=== PATIENT | female | born 1990 | race African-American/Black ===

== ENCOUNTER 2017-01-09 12:06 | Emergency (ER) | payer OTHER ==
[2017-01-09 12:10] VITALS: BP 118/64; PULSE 59; TEMP 98; BMI 21.6
--- NOTE | 2017-01-09 12:56 | PDOC ---
History of Present Illness - General Chief Complaint: Headache Stated Complaint: HEADACHE Time Seen by Provider: 01/09/17 12:35 History Source: Patient Exam Limitations: No Limitations - History of Present Illness Initial Comments: 01/09/17 12:50 And here with complaints of frontal/sinus headache pain, runny nose and congestion for the past few days. States has made her mildly dizzy, and has had a sore throat worse in the morning. Has tried teas with minimal resolved. Has taken no medication for relief. States supper's from pollen ALLERGIES but does not take antihistamines., No Earache or Cough Timing/Duration: reports: waxing and waning Severity: Yes: mild, moderate Associated Symptoms: reports: fatigue. denies: loss of consciousness Past History - Travel Traveled outside of the country in the last 30 days: No Close contact w/someone who was outside of country & ill: No - Past Medical History Allergies/Adverse Reactions: Allergies Allergy/AdvReac Type Severity Reaction Status Date / Time No Known Allergies Allergy Verified 01/09/17 12:11 Home Medications: Ambulatory Orders Vit #108/Iron/FA [ One Tablet] 1 each PO DAILY 02/15/15 Cetirizine HCl/Pseudoephedrine [Allergy+Congestion Relf-D Tab] 1 each PO DAILY # 30 tab 01/09/17 Asthma: No Cancer: No Cardiac Disorders: No Diabetes: No HTN: No Suicide Attempt (Hx): No Seizures: No Thyroid Disease: No - Immunization History Td Vaccination: Yes TDAP Vaccination: No Immunization Up to Date: Yes - Psycho/Social/Smoking Cessation Hx Anxiety: No Suicidal Ideation: No Smoking Status: No Smoking History: Never smoked Years of Tobacco Use: 0 Number of Cigarettes Smoked Daily: 0 Cigars Per Day: 0 Information on smoking cessation initiated: No Hx Alcohol Use: No Drug/Substance Use Hx: No Substance Use Type: None Hx Substance Use Treatment: No Review of Systems - Review of Systems Able to Perform ROS?: Yes Is the patient limited Iranian proficient: Yes Constitutional: Yes: Symptoms Reported, See HPI, Malaise. No: Chills, Fever HEENTM: Yes: Symptoms Reported, Nose Congestion Respiratory: Yes: Symptoms reported, See HPI, Cough (non productive ) Integumentary: Yes: Symptoms Reported Neurological: Yes: Symptoms reported All Other Systems: Reviewed and Negative *Physical Exam - Vital Signs Last Vital Signs Temp Pulse Resp BP Pulse Ox 98 F 59 L 18 118/64 100 01/09/17 12:08 01/09/17 12:08 01/09/17 12:08 01/09/17 12:08 01/09/17 12:08 - Physical Exam General Appearance: Yes: Nourished, Appropriately Dressed, Apparent Distress HEENT: positive: MAMADOU (glassy), Pharynx Normal, Nasal Congestion, Rhinorrhea, Sinus Tenderness (with some fullness to frontal sinuses, mild tenderness to ethmoid and maxillary). negative: TMs Normal (congested ), Pharyngeal Erythema (on appearance with postnasal drainage noted in posterior pharynx) Neck: positive: Supple. negative: Tender, Lymphadenopathy (R), Lymphadenopathy (L) Respiratory/Chest: positive: Chest Tender, Lungs Clear Gastrointestinal/Abdominal: positive: Soft. 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, Fully Oriented, Alert, Normal Mood/ Affect, Normal Response, Motor Strength 5/5 Progress Note - Progress Note Progress Note: Urgent rhinitis, will provide zyrerotec with decongestant and conservative measures *DC/Admit/Observation/Transfer Diagnosis at time of Disposition: Allergic rhinitis Qualifiers: Chronicity: acute Allergic rhinitis trigger: unspecified Allergic rhinitis seasonality: unspecified seasonality Qualified Code(s): J30.9 - Allergic rhinitis, unspecified - Discharge Dispostion Disposition: HOME Condition at time of disposition: Stable Admit: No - Patient Instructions Printed Discharge Instructions: DI for Allergic Rhinitis Additional Instructions: Rest, drink lots of fluids: Teas, water, soups Saltwater gargles. Consider humidifier in room at night Steamy showers/seem to face break up mucus Avoid contact with allergens, exposure to pollens, close windows on a windy day Lots of handwashing and good hygiene Continue [id number]-ljk-[id number] medications for symptomatic relief- may use allergic eyedrops for itching I Continue antihistamines daily until pollen season is over; Zyrtec, Claritin, Amada during the daytime and Benadryl at nighttime as will make sleepy Tylenol or Motrin for fever and pain Followup with private physician in one to 2 days as needed Consider following up with an lead developer/diesel service apprentice for skin testing and possible allergy shots Return to emergency department for worsened symptoms, fevers, dehydration - Post Discharge Activity Work/School Note: Back to Work
== END 2017-01-09 13:02 | disposition home or self-care (01) ==
LOC: JERFT 12:06
DX: J30.89 Other allergic rhinitis (principal)
CPT/HCPCS: 99281-25

== ENCOUNTER 2019-05-14 20:28 | Emergency (ER) | payer OTHER ==
[2019-05-14 20:35] VITALS: BMI 23.0
[2019-05-14] MEDS ORDERED: SODIUM CHLORIDE 1,000 ML IV STA (20:39)
[2019-05-14] MEDS ORDERED: ACETAMINOPHEN INJECTION 100 ML IVPB ONE (20:39)
[2019-05-14] MEDS ORDERED: ACETAMINOPHEN 1000 MG/100 ML VIAL (NON FORMULARY) IVPB ONE (20:39)
--- NOTE | 2019-05-14 20:52 | PDOC ---
History of Present Illness - General Chief Complaint: Altered Mental Status Stated Complaint: UNRESPONSIVE Time Seen by Provider: 05/14/19 20:32 History Source: Patient Exam Limitations: No Limitations - History of Present Illness Initial Comments: 05/14/19 20:44 Patient is a 28F with no significant medical history who was brought into the emergency department after being found unresponsive by her mother. Patient is shaking voluntarily and ignoring most questions, but is able to say that her head hurts. Mom denies any trauma, substance use and seizure history. Patient has questionable history of anxiety. Brought in by father on his back. Mom reports conflict with boyfriend and increased stress levels at home. Past History - Past Medical History Allergies/Adverse Reactions: Allergies Allergy/AdvReac Type Severity Reaction Status Date / Time No Known Allergies Allergy Verified 05/14/19 20:32 Home Medications: Ambulatory Orders Mv-Mn/Iron/FA/Herbal/Digestive [ One Tablet] 1 each PO DAILY 02/15/15 Cetirizine HCl/Pseudoephedrine [Allergy+Congestion Relf-D Tab] 1 each PO DAILY # 30 tab 01/09/17 Asthma: No Cancer: No Cardiac Disorders: No Diabetes: No HTN: No Seizures: No Thyroid Disease: No - Immunization History Td Vaccination: Yes TDAP Vaccination: No Immunization Up to Date: Yes - Psycho Social/Smoking Cessation Hx Smoking Status: No Smoking History: Never smoked Years of Tobacco Use: 0 Have you smoked in the past 12 months: No Number of Cigarettes Smoked Daily: 0 Cigars Per Day: 0 Information on smoking cessation initiated: No Hx Alcohol Use: No Drug/Substance Use Hx: No (unknown) Substance Use Type: None Hx Substance Use Treatment: No Review of Systems - Review of Systems Able to Perform ROS?: No (2/2 clinical condition) *Physical Exam - Vital Signs Last Vital Signs Temp Pulse Resp BP Pulse Ox 75 22 H 139/69 100 05/14/19 20:33 05/14/19 20:33 05/14/19 20:33 05/14/19 20:33 - Physical Exam Comments: 05/14/19 20:53 GENERAL: Awake, alert, shaking jaw and eyelids HEAD: No signs of trauma, normocephalic, atraumatic EYES: PERRLA, EOMI, sclera anicteric, conjunctiva clear ENT: Auricles normal inspection, hearing grossly normal, nares patent, oropharynx clear without exudates. Moist mucosa NECK: Normal ROM, supple, no lymphadenopathy, JVD, or masses LUNGS: No distress, speaks full sentences, clear to auscultation bilaterally HEART: Regular rate and rhythm, normal S1 and S2, no murmurs, rubs or gallops, peripheral pulses normal and equal bilaterally. ABDOMEN: Soft, nontender, normoactive bowel sounds. No guarding, no rebound. No masses EXTREMITIES: Normal inspection, Normal range of motion, no edema. No clubbing or cyanosis. NEUROLOGICAL: Cranial nerves II through XII grossly intact. Voluntary shaking of eyelids and jaw. Protecting face, moving head purposely, held self up during removal of clothes SKIN: Warm, Dry, normal turgor, no rashes or lesions noted. ED Treatment Course - LABORATORY CBC & Chemistry Diagram: 05/14/19 20:41 05/14/19 20:43 - RADIOLOGY Radiology Studies Ordered: Category Date Time Status HEAD CT WITHOUT CONTRAST [CT] Stat CT Scan 05/14/19 20:37 Ordered CXRPORT [CHEST X-RAY PORTABLE*] [RAD] Stat Radiology 05/14/19 20:38 Ordered Medical Decision Making - Medical Decision Making 05/14/19 20:54 Patient is 28F with no significant medical history here today with altered mental status. Vitals normal and stable. No signs of seizure. DDx includes but is not limited to: intox, pseudoseizure, tension headache, anxiety. Will treat pain, check cbc, cmp, preg, utox, CT head. 05/14/19 21:42 CBC normal. CMP normal. Tylenol 17.5, will review with patient time of tylenol ingestion. Patient currently asymptomatic and feeling better, likely took tylenol for headache. Salicylates negative. Preg negative. CT/CXR pending. 05/14/19 21:52 CXR shows no acute process. 05/15/19 00:10 CT normal. Tylenol level drawn after tylenol given due to not drawing correct tube. Will discharge home. Discharge - Discharge Information Problems reviewed: Yes Clinical Impression/Diagnosis: Panic attack Condition: Good Disposition: HOME - Admission No - Follow up/Referral Referrals: Sriram Loya MD [Staff Physician] - - Patient Discharge Instructions Patient Printed Discharge Instructions: DI for Anxiety -- Adult Additional Instructions: Please follow up with your primary care physician this week. You've also been given a referall for psychiatry below. Please return if you have any new, worsening or concerning symptoms, especially fever, increasing pain and shortness of breath. - Post Discharge Activity
[2019-05-14 20:58] LABS: BASO % 1.3 % (0-2.0); EOS % 4.7 % (0-4.5); HEMATOCRIT 42.6 % (32.4-45.2); HEMOGLOBIN 13.9 GM/dL (10.7-15.3); LYMPH % 43.6 % (8-40); MCHC 32.7 g/dl (32.0-36.0); MEAN CELL VOLUME 88.5 fl (80-96); MONO % 7.8 % (3.8-10.2); NEUT % 42.6 % (42.8-82.8); RBC 4.81 M/mm3 (3.60-5.2); WHITE BLOOD COUNT 5.4 K/mm3 (4.0-10.0)
[2019-05-14 21:26] LABS: ALBUMIN 4.2 g/dl (3.4-5.0); ALK PHOS 61 U/L (45-117); ANION GAP 9 MMOL/L (8-16); BILIRUBIN,TOTAL 0.7 mg/dL (0.2-1); BLOOD UREA NITROGEN 8.3 mg/dL (7-18); CALCIUM 9.4 mg/dL (8.5-10.1); CHLORIDE 106 mmol/L (98-107); CO2 25 mmol/L (21-32); CREATININE 0.9 mg/dL (0.55-1.3); GLUCOSE,RANDOM 97 mg/dL (74-106); SGOT/AST 14 U/L (15-37); SGPT/ALT 15 U/L (13-61); SODIUM 140 mmol/L (136-145); TOT PROT 7.5 g/dl (6.4-8.2)
[2019-05-14 21:29] LABS: PLATELET COUNT 204 K/MM3 (134-434)
[2019-05-14 21:56] LABS: PH,URINE 8.5 (5.0-8.0); URINE APPEARANCE CLOUDY; URINE BILIRUBIN NEGATIVE (NEGATIVE); URINE COLOR YELLOW; URINE GLUCOSE (UA) NEGATIVE (NEGATIVE); URINE KETONE 2+ (NEGATIVE); URINE LEUK ESTERASE NEGATIVE (NEGATIVE); URINE NITRITE NEGATIVE (NEGATIVE); URINE PROTEIN TRACE (NEGATIVE)
[2019-05-14 22:06] LABS: COCAINE, UR NEGATIVE ng/ml (CUTOFF=300); METHADONE, UR NEGATIVE ng/ml (CUTOFF=300); OPIATES, URI NEGATIVE ng/ml (CUTOFF=300); PHENCYCLIDINE,URINE NEGATIVE ng/ml (CUTOFF=25); URINE AMPHETAMINES NEGATIVE ng/ml (CUTOFF=500); URINE BARBITURATES NEGATIVE ng/ml (CUTOFF=200); URINE BENZODIAZEPINES NEGATIVE ng/ml (CUTOFF=200)
--- NOTE | 2019-05-14 22:06 | PDOC ---
Documentation entered by Ananya Ny SCRIBE, acting as scribe for Dottie Cannon DO. Dottie Cannon DO: This documentation has been prepared by the Anant sol Adrianna, SCRIBE, under my direction and personally reviewed by me in its entirety. I confirm that the documentation accurately reflects all work, treatment, procedures, and medical decision making performed by me. Attending Attestation - Resident Resident Name: Wiley Lau - ED Attending Attestation I have performed the following: I have examined & evaluated the patient, The case was reviewed & discussed with the resident, I agree w/resident's findings & plan - HPI HPI: The patient is a 28 year old female, with no significant PMH, presenting with unresponsiveness. Mom notes she found her daughter on the floor shaking and unable to answer questions. She complained of head pain. Mom reports increased stress at home secondary to issues with boyfriend. Allergies: NKA, NKDA Surgical History: None reported Social History: No toxic habits - Physicial Exam PE: Agree with resident exam - Medical Decision Making 05/14/19 22:05 28-year-old female with altered mental status and what appeared to be seizure- like activity after complaining of a headache at home Patient rapidly returned to normal mental status admitting that she is been under stress Work-up has been unremarkable No acute psychiatric need for evaluation Plan for DC home with outpatient follow-up
[2019-05-15 00:27] VITALS: BP 119/68; PULSE 78
== END 2019-05-15 00:27 | disposition home or self-care (01) ==
LOC: JER 20:28
PROC: 3E033NZ Introduction of Analgesics, Hypnotics, Sedatives into Peripheral Vein, Percutaneous Approach (ICD-10-PCS; principal; 2019-05-14)
PROC: 3E0337Z Introduction of Electrolytic and Water Balance Substance into Peripheral Vein, Percutaneous Approach (ICD-10-PCS; 2019-05-14)
DX: F41.0 Panic disorder [episodic paroxysmal anxiety] (principal)
CPT/HCPCS: 36415; 70450-TC; 71045-TC-FY; 80053; 80307; 81003; 84703; 85025; 99285-25; J0131; J7030

== ENCOUNTER 2019-08-13 23:08 | Emergency (ER) | payer OTHER ==
[2019-08-13 23:32] VITALS: BP 111/53; PULSE 73; TEMP 98.2; BMI 51.5
--- NOTE | 2019-08-14 01:14 | PDOC ---
History of Present Illness - General Chief Complaint: Pain Stated Complaint: ABD PAIN Time Seen by Provider: 08/14/19 01:07 - History of Present Illness Initial Comments: 08/14/19 01:31 29 year old woman A0 currently approx 8 weeks with LNMP in mid- June who presents with seconds long episode of LUQ stabbing pain that resolved. The patient denies any fevers, chest pain, shortness of breath, Past History - Past Medical History Allergies/Adverse Reactions: Allergies Allergy/AdvReac Type Severity Reaction Status Date / Time No Known Allergies Allergy Verified 08/13/19 23:25 Home Medications: Ambulatory Orders Mv-Mn/Iron/FA/Herbal/Digestive [ One Tablet] 1 each PO DAILY 02/15/15 Cetirizine HCl/Pseudoephedrine [Allergy+Congestion Relf-D Tab] 1 each PO DAILY # 30 tab 01/09/17 Asthma: No Cancer: No Cardiac Disorders: No COPD: No Diabetes: No HTN: No Seizures: No Thyroid Disease: No - Immunization History Td Vaccination: Yes TDAP Vaccination: No Immunization Up to Date: Yes - Psycho Social/Smoking Cessation Hx Smoking Status: No Smoking History: Never smoked Years of Tobacco Use: 0 Have you smoked in the past 12 months: No Number of Cigarettes Smoked Daily: 0 Cigars Per Day: 0 Information on smoking cessation initiated: No Hx Alcohol Use: No Drug/Substance Use Hx: No Substance Use Type: None Hx Substance Use Treatment: No *Physical Exam - Vital Signs Last Vital Signs Temp Pulse Resp BP Pulse Ox 98.2 F 73 18 111/53 L 100 08/13/19 23:10 08/13/19 23:10 08/13/19 23:10 08/13/19 23:10 08/13/19 23:10 Discharge - Discharge Information Problems reviewed: Yes Clinical Impression/Diagnosis: Abdominal pain Condition: Stable Disposition: HOME - Admission No - Follow up/Referral Referrals: Alfred Clemons MD [Primary Care Provider] - - Patient Discharge Instructions Patient Printed Discharge Instructions: DI for Abdominal Pain -- Early Additional Instructions: You were seen in the ER for complaints of abdominal pain You had an ultrasound that showed age of 5 weeks 6 days with no measurable heart rate You have an upcoming appointment on 08/21/19 with your OBGYN and you should keep this appointment. Return to the ER if you develop vaginal bleeding, worsening abdominal pain, nausea, vomiting or any other concerning symptoms - Post Discharge Activity
--- NOTE | 2019-08-14 01:17 | PDOC ---
Attending Attestation - Resident Resident Name: Romi Mc - ED Attending Attestation I have performed the following: I have examined & evaluated the patient, The case was reviewed & discussed with the resident, I agree w/resident's findings & plan - HPI HPI: 08/14/19 02:16 see resident hpi - Physicial Exam PE: 08/14/19 02:16 agree with resident exam - Medical Decision Making 08/14/19 02:16 29-year-old female with an episode of abdominal pain, now resolved By LMP patient is approximately 8 weeks gestational age Ultrasound today shows an approximately 5-week 6-day pole with no heart rate detected Patient has no vaginal bleeding and is asymptomatic at this time Abdomen is completely nontender We will send a beta quantitative level for comparison when she goes for her follow-up appointment in approximately 1 week for ultrasound and OB establishment Patient understands instructions, she was advised that may not be viable and she may develop increased pain or bleeding for which she was told to return.
[2019-08-14 03:13] LABS: ALBUMIN 3.8 g/dl (3.4-5.0); BILIRUBIN,TOTAL 0.3 mg/dL (0.2-1); BLOOD UREA NITROGEN 7.2 mg/dL (7-18); CALCIUM 8.7 mg/dL (8.5-10.1); CREATININE 0.7 mg/dL (0.55-1.3); POTASSIUM 3.5 mmol/L (3.5-5.1); TOT PROT 6.8 g/dl (6.4-8.2)
== END 2019-08-14 02:39 | disposition home or self-care (01) ==
LOC: JER 23:08
DX: O26.891 Other specified pregnancy related conditions, first trimester (principal); R10.12 Left upper quadrant pain; Z3A.08 8 weeks gestation of pregnancy
CPT/HCPCS: 36415; 76817-TC; 80053; 83690; 84702; 99282-25

== ENCOUNTER 2019-08-18 09:04 | Emergency (ER) | payer OTHER ==
[2019-08-18 09:15] VITALS: BMI 22.4
[2019-08-18] MEDS ORDERED: FAMOTIDINE 20 MG/50 ML IVPB 20 MG/50 ML MG IVPB ONE ×2 (10:20→10:32)
[2019-08-18] MEDS ORDERED: ACETAMINOPHEN 1000 MG/100 ML VIAL (NON FORMULARY) IVPB ONE (10:20)
[2019-08-18] MEDS ORDERED: SODIUM CHLORIDE 1,000 ML IV STA (10:20)
--- NOTE | 2019-08-18 10:20 | PDOC ---
History of Present Illness - General Chief Complaint: Pain, Acute Stated Complaint: 5 W PREG/VOMITING Time Seen by Provider: 08/18/19 10:03 History Source: Patient Exam Limitations: No Limitations - History of Present Illness Initial Comments: Edwige Charlton is a 29 yo F, LMP mid June, who presents to the [facility] er with nausea and vomiting which is associated with epigastric discomfort when she vomits. She states whatever she eats she throws up. She is having a difficult time keeping anything down. Her vomitus does not appear to be bloody or have anything green in it. She states she feels dehydrated and has not been able to eat for the past day. She was recently seen in this ER 3 days ago where she had an US performed which showed a normal IUP. - Patient states she has been taking her pre-divya vitamins at home. She denies fevers, chills, chest pain, SOB, difficulty breathing, dysuria, frequency, or hematuria PCP: Dr. Clemons OB: 2 [facility] PSH: None reported Allergies: NKA, NKDA Social Hx: Denies smoking, drinking, or other substance abuse. Takes pre- vitamins. Past History - Past Medical History Allergies/Adverse Reactions: Allergies Allergy/AdvReac Type Severity Reaction Status Date / Time No Known Allergies Allergy Verified 08/18/19 09:15 Home Medications: Ambulatory Orders Mv-Mn/Iron/FA/Herbal/Digestive [ One Tablet] 1 each PO DAILY 02/15/15 Cephalexin Monohydrate [Keflex -] 500 mg PO Q6H 5 Days #20 capsule 08/18/19 Asthma: No Cancer: No Cardiac Disorders: No COPD: No Diabetes: No HTN: No Seizures: No Thyroid Disease: No - Reproductive History Therapeutic (s) & number: No - Immunization History Td Vaccination: Yes TDAP Vaccination: No Immunization Up to Date: Yes - Psycho Social/Smoking Cessation Hx Smoking Status: No Smoking History: Never smoked Years of Tobacco Use: 0 Have you smoked in the past 12 months: No Number of Cigarettes Smoked Daily: 0 Cigars Per Day: 0 Hx Alcohol Use: No Drug/Substance Use Hx: No Substance Use Type: None Hx Substance Use Treatment: No Abd/GI Specific PMHX - Complaint Specific PMHX GERD: No Review of Systems - Review of Systems Able to Perform ROS?: Yes Comments:: CONSTITUTIONAL: Present: Fatigue Absent: fever, no chills EYES: Absent: visual changes ENT: Absent: ear pain, no sore throat CARDIOVASCULAR: Absent: chest pain, no palpitations RESPIRATORY: Absent: cough, no SOB GI: Present: Abdominal pain, nausea, vomiting Absent: no constipation, no diarrhea GENITOURINARY: Absent: dysuria, no frequency, no hematuria MUSKULOSKELETAL: Absent: back pain, no arthralgia, no myalgia SKIN: Absent: rash NEURO: Absent: headache *Physical Exam - Vital Signs Last Vital Signs Temp Pulse Resp BP Pulse Ox 98.1 F 63 16 139/85 100 08/18/19 09:13 08/18/19 09:13 08/18/19 09:13 08/18/19 09:13 08/18/19 09:13 - Physical Exam GENERAL: Well-appearing, well-nourished. Mild distress. HEENT: Normocephalic, atraumatic. PERRL, EOM intact. CARDIOVASCULAR: Normal S1, S2. Regular rate and rhythm. PULMONARY: No evidence of respiratory distress. Lungs clear to auscultation bilaterally. No wheezing, rales or rhonchi. ABDOMEN: Mild epigastric TTP. Soft, non-distended. EXTREMITIES: Normal ROM in all four extremities. No gross deformities. SKIN: Warm, dry. No rash NEUROLOGICAL: No focal neurological deficits. ED Treatment Course - LABORATORY CBC & Chemistry Diagram: 08/18/19 10:52 08/18/19 10:52 - RADIOLOGY Radiograph Interpretation: TVUS: EXAM#: TYPE/EXAM: RESULT: [id number] US/TRANSVAGINAL US PREG HISTORY PROVIDED: evaluation. Real time examination of the pelvis utilizing both the transabdominal and transvaginal probes demonstrates the following: There is a single, live intrauterine with crown-rump measurements corresponding to a gestational age of 6 weeks 1 day. A heart rate of 108 BPM was calculated. The ovaries are normal in size and texture with arterial flow documented to both ovaries. There is a small right ovarian cyst measuring 2.1 x 1.8 x 1.5 cm. There is no evidence of adnexal masses or free pelvic fluid collections. IMPRESSION: Single, live intrauterine of 6 weeks 1 day gestational age. Medical Decision Making - Medical Decision Making Edwige Charlton is a 29 yo F, LMP mid June, who presents to the [facility] er with nausea and vomiting which is associated with epigastric discomfort when she vomits. She states whatever she eats she throws up. She is having a difficult time keeping anything down. Her vomitus does not appear to be bloody or have anything green in it. She states she feels dehydrated and has not been able to eat for the past day. She was recently seen in this ER 3 days ago where she had an US performed which showed a normal IUP. - Patient states she has been taking her pre- vitamins at home. Vital Signs Temp Pulse Resp BP Pulse Ox 98.1 F 63 16 139/85 100 08/18/19 09:13 08/18/19 09:13 08/18/19 09:13 08/18/19 09:13 08/18/19 09:13 DDx IBNLT: Hyperemesis gravidarum, dehydration, electrolyte/metabolic disturbance, asymptomatic bacteriuria Plan: Labs, Urine, IV hydration, analgesia, anti-emetics, supportive care, re- assess Labs: Unremarkable Urine: 2+ ketonuria, asymptomatic bacteriurea - Keflex sent to pharmacy Re-assessment: Patient feels better after supportive care and is requesting to be fed. She is eating a tukey sandwich and drinking apple juice in the ER TVUS: A heart rate of 108 BPM was calculated. Single, live intrauterine of 6 weeks 1 day gestational age. Disposition: Home with OB fu Discharge - Discharge Information Problems reviewed: Yes Clinical Impression/Diagnosis: Asymptomatic bacteriuria during , Hyperemesis gravidarum Condition: Improved Disposition: HOME - Admission No - Additional Discharge Information Prescriptions: Cephalexin Monohydrate [Keflex -] 500 mg PO Q6H 5 Days #20 capsule - Follow up/Referral Referrals: Alfred Clemons MD [Primary Care Provider] - - Patient Discharge Instructions Patient Printed Discharge Instructions: Urinary Tract Infection Additional Instructions: You came into the ER with nausea and vomiting. You were very dehydrated. We gave you IV fluids and other medications which made you feel much better and enabled you to eat and drink in the ER. We looked at your urine and found that you have bacteria in it. We are sending antibiotics to your local pharmacy for you to take for this. Please make sure to schedule a follow up with your OB doctor in the next 3 to5 days to make sure you are feeling well, being taken care of and getting better. Come back to the ER immediately if your pain worsens or you have any other new or worsening concerns. thank you for coming to the [place] ER. We hope you feel better soon! Print Language: KHMER - Post Discharge Activity
[2019-08-18] MEDS ORDERED: ONDANSETRON 4 MG/2 ML VIAL IVPUSH ONE (10:21)
[2019-08-18] MEDS ORDERED: ONDANSETRON 4 MG/2 ML VIAL ONE (10:32)
[2019-08-18] MEDS ORDERED: ACETAMINOPHEN INJECTION 100 ML IVPB ONE (10:32)
[2019-08-18 11:15] LABS: BASO % 0.8 % (0-2.0); EOS % 0.5 % (0-4.5); HEMATOCRIT 42.8 % (32.4-45.2); HEMOGLOBIN 14.5 GM/dL (10.7-15.3); LYMPH % 38.3 % (8-40); MCH 29.3 pg (25.7-33.7); MCHC 33.8 g/dl (32.0-36.0); MEAN CELL VOLUME 86.8 fl (80-96); MEAN PLT VOLUME 10.1 fl (7.5-11.1); MONO % 6.6 % (3.8-10.2); NEUT % 53.8 % (42.8-82.8); PLATELET COUNT 191 K/MM3 (134-434); RBC 4.93 M/mm3 (3.60-5.2); WHITE BLOOD COUNT 3.7 K/mm3 (4.0-10.0)
[2019-08-18 11:21] LABS: HYALINE CASTS 37 /lpf (0-8); PH,URINE 7.5 (5.0-8.0); URINE APPEARANCE CLOUDY; URINE BACTERIA 909.2 /hpf (NEGATIVE); URINE BILIRUBIN NEGATIVE (NEGATIVE); URINE COLOR DK YELLOW; URINE GLUCOSE (UA) NEGATIVE (NEGATIVE); URINE KETONE 2+ (NEGATIVE); URINE LEUK ESTERASE NEGATIVE (NEGATIVE); URINE NITRITE NEGATIVE (NEGATIVE); URINE PROTEIN 2+ (NEGATIVE); URINE RBC 1 /hpf (0-4); URINE WBC 6 /hpf (0-5)
[2019-08-18 11:40] LABS: ALBUMIN 4.6 g/dl (3.4-5.0); BILIRUBIN,TOTAL 0.2 mg/dL (0.2-1); CALCIUM 9.2 mg/dL (8.5-10.1); CREATININE 0.8 mg/dL (0.55-1.3); POTASSIUM 3.7 mmol/L (3.5-5.1); TOT PROT 8.4 g/dl (6.4-8.2)
--- NOTE | 2019-08-18 11:53 | PDOC ---
Attending Attestation - Resident Resident Name: Shane Del Castillo - ED Attending Attestation I have performed the following: I have examined & evaluated the patient, The case was reviewed & discussed with the resident, I agree w/resident's findings & plan - HPI HPI: 08/18/19 11:50 Healthy 29-year-old female suspected LMP in June status post visit on 08/14 with likely early IUP and elevated hCG presents now with epigastric discomfort and persistent nonbloody nonbilious nausea/vomiting of the last 3 days, no persistent abdominal pain, no diarrhea. Normal appetite but not tolerating some meals, presents for evaluation. Denies any cramping or bleeding or lightheadedness or syncope. No history of recurring GI illnesses, may have had endoscopy in the past but does not recall diagnosis of gastritis or PUD, had similar nausea/vomiting in early during her first . No other travel/antibiotics, works in a public place. - Physicial Exam PE: 08/18/19 11:51 Vitals are within normal limits Well-appearing lying comfortably in stretcher, no jaundice or pallor, moist mucosa Heart is regular, lungs are clear Abdomen is soft/nondistended. Epigastric discomfort to palpation without guarding or rebound, no right upper or right lower quadrant tenderness. No CVA tenderness. - Medical Decision Making 08/18/19 11:52 29-year-old female first trimester presents with intractable vomiting , otherwise benign abdominal exam and normal vitals. Presentation seems most consistent with viral gastritis/dyspepsia versus nausea/vomiting of , less likely pancreatic or biliary pathology. No signs or symptoms of BOX ORDER PERSON emergency. Labs, urinalysis IV fluids, antacid, antiemetic Reassess
[2019-08-18 12:03] LABS: MAGNESIUM 2.2 mg/dL (1.8-2.4)
[2019-08-18] MEDS ORDERED: SODIUM CHLORIDE 0.9% 500 ML INFUS.BAG IV ONE (12:10)
[2019-08-18 16:07] VITALS: BP 106/66; PULSE 61; TEMP 97.7
== END 2019-08-18 14:58 | disposition home or self-care (01) ==
LOC: JER 09:04
PROC: 3E0337Z Introduction of Electrolytic and Water Balance Substance into Peripheral Vein, Percutaneous Approach (ICD-10-PCS; principal; 2019-08-18)
PROC: 3E033GC Introduction of Other Therapeutic Substance into Peripheral Vein, Percutaneous Approach (ICD-10-PCS; 2019-08-18)
PROC: 3E033NZ Introduction of Analgesics, Hypnotics, Sedatives into Peripheral Vein, Percutaneous Approach (ICD-10-PCS; 2019-08-18)
PROC: 3E033GC Introduction of Other Therapeutic Substance into Peripheral Vein, Percutaneous Approach (ICD-10-PCS; 2019-08-18)
DX: O26.891 Other specified pregnancy related conditions, first trimester (principal); O21.0 Mild hyperemesis gravidarum; O23.591 Infection of other part of genital tract in pregnancy, first trimester; R82.71 Bacteriuria; Z3A.01 Less than 8 weeks gestation of pregnancy
CPT/HCPCS: 36415; 76817-TC; 80053; 81003; 83690; 83735; 84100; 84702; 85025; 87086; 96361; 96365; 96375; 99283-25; J0131; J7030

== ENCOUNTER 2019-08-19 17:57 | Emergency (ER) | payer OTHER ==
[2019-08-19] MEDS ORDERED: ONDANSETRON 4 MG/2 ML VIAL IVPUSH ONE (18:32)
[2019-08-19] MEDS ORDERED: SODIUM CHLORIDE 1,000 ML IV STA (18:32)
--- NOTE | 2019-08-19 18:35 | PDOC ---
Rapid Medical Evaluation Chief Complaint: Pain Time Seen by Provider: 08/19/19 18:29 Medical Evaluation: Allergies Allergy/AdvReac Type Severity Reaction Status Date / Time No Known Allergies Allergy Verified 08/19/19 18:33 08/19/19 18:34 Pt c/o: nv/ abd pain, 6 weeks preg, seen yesterday u/s showed IUP Pt on brief exam: vss, Pt ordered for: labs urine, ivf, zofran Pt to proceed to the ED Discharge Disposition - Diagnosis Hyperemesis gravidarum - Referrals - Patient Instructions - Post Discharge Activity
[2019-08-19 18:36] VITALS: BMI 22.4
--- NOTE | 2019-08-19 21:08 | PDOC ---
History of Present Illness - General Chief Complaint: Pain Stated Complaint: ABD PAIN/VOMITING Time Seen by Provider: 08/19/19 18:29 - History of Present Illness Initial Comments: 08/19/19 21:04 Pt is a 29y/o female 6 weeks who presents with epigastric abdominal pain, vomiting and diarrhea. She reports abdominal pain has been present a week but got significantly worse in the last day. She reports vomiting too many times to count, diarrhea, and chills. She denies vaginal bleeding. She was seen in the ED yesterday and had TVUS which confirmed 6 weeks 1 day HR 108. She was also diagnosed with UTI and took 1 dose of cephalexin. Pt denies marijuana use. Past History - Past Medical History Allergies/Adverse Reactions: Allergies Allergy/AdvReac Type Severity Reaction Status Date / Time No Known Allergies Allergy Verified 08/23/19 07:11 Home Medications: Ambulatory Orders Mv-Mn/Iron/FA/Herbal/Digestive [ One Tablet] 1 each PO DAILY 02/15/15 Cephalexin Monohydrate [Keflex -] 500 mg PO Q6H 5 Days #20 capsule 08/18/19 Acetaminophen [Pain Relief] 650 mg PO Q8H PRN #30 tablet.er 08/19/19 Famotidine [Pepcid] 20 mg PO DAILY #30 tablet 08/19/19 Mag Hydrox/Aluminum Hyd/Simeth [Maalox Advanced Suspension] 30 ml PO TID PRN #1 bottle 08/19/19 Ondansetron [Zofran *Odt*] 4 mg SL TID PRN #21 od.tablet 08/19/19 Doxylamine Succinate [Nighttime Sleep-Aid] 25 mg PO DAILY #30 tablet 08/23/19 Pyridoxine HCl (Vitamin B6) [Vitamin B-6] 25 mg PO DAILY #30 tablet 08/23/19 Terconazole 80 mg VG DAILY 3 Days #3 supp.vag 08/23/19 Asthma: No Cancer: No Cardiac Disorders: No COPD: No Diabetes: No HTN: No Seizures: No Thyroid Disease: No - Reproductive History (#): 2 Para: 1 Therapeutic (s) & number: No - Immunization History Td Vaccination: Yes TDAP Vaccination: No Immunization Up to Date: Yes - Psycho Social/Smoking Cessation Hx Smoking Status: No Smoking History: Never smoked Years of Tobacco Use: 0 Have you smoked in the past 12 months: No Number of Cigarettes Smoked Daily: 0 Cigars Per Day: 0 Information on smoking cessation initiated: No Hx Alcohol Use: No Drug/Substance Use Hx: No Substance Use Type: None Hx Substance Use Treatment: No Review of Systems - Review of Systems Constitutional: Yes: Chills. No: Fever ABD/GI: Yes: Diarrhea, Nausea, Vomiting. No: Abdominal Distended : No: Dysuria Neurological: Yes: Dizziness. No: Headache *Physical Exam - Vital Signs Last Vital Signs Temp Pulse Resp BP Pulse Ox 98.2 F 61 16 113/96 100 08/19/19 18:33 08/19/19 18:33 08/19/19 18:33 08/19/19 18:33 08/19/19 18:33 - Physical Exam General Appearance: Yes: Nourished, Mild Distress HEENT: positive: EOMI, MAMADOU Neck: positive: Trachea midline Respiratory/Chest: positive: Lungs Clear Cardiovascular: positive: Regular Rhythm, Regular Rate Gastrointestinal/Abdominal: positive: Tender (epigastric/ RLQ). negative: Guarding, Rebound Extremity: negative: Pedal Edema Neurologic: positive: data warehouse developer II-XII NML intact, Fully Oriented, Alert, Normal Mood/ Affect ED Treatment Course - LABORATORY CBC & Chemistry Diagram: 08/19/19 21:05 08/19/19 21:05 Medical Decision Making - Medical Decision Making 08/19/19 21:21 Pt is a 29y/o female who presents with abdominal pain, n/v/d. This is her 3rd visit to the ED in the last week for similar symptoms. She was diagnosed with UTI yesterday for which she took 1 dose of cephalexin. Differential: gastroenteritis, hyperemesis gravidarum, less likely cyclical vomiting syndrome , appendicitis. 08/19/19 21:49 Pt reports no relief following zofran. Will give Ofrimev because she felt relief yesterday with it. Discharge - Discharge Information Problems reviewed: Yes Clinical Impression/Diagnosis: Excessive vomiting in Condition: Stable Disposition: HOME - Additional Discharge Information Prescriptions: Acetaminophen [Pain Relief] 650 mg PO Q8H PRN #30 tablet.er PRN Reason: Pain Famotidine [Pepcid] 20 mg PO DAILY #30 tablet Mag Hydrox/Aluminum Hyd/Simeth [Maalox Advanced Suspension] 30 ml PO TID PRN #1 bottle PRN Reason: Abdominal pain Ondansetron [Zofran *Odt*] 4 mg SL TID PRN #21 od.tablet PRN Reason: Nausea And/Or Vomiting - Follow up/Referral Referrals: Alfred Clemons MD [Primary Care Provider] - - Patient Discharge Instructions Patient Printed Discharge Instructions: DI for Hyperemesis Gravidarum Additional Instructions: Discharge Instructions: You were seen in the emergency department for nausea and vomiting duiring . Your blood tests did not show any abnormalities, and your symptoms improved with medications: Home Care and Follow Up: - Vomiting in early is common and is often not a cause for concern. - Eat small, frequent meals throughout the day. Consider keeping crackers or a small snack near your bed to eat as soon as you get up in the morning. - Make sure you are drinking plenty of fluids and staying well hydrated - A combination of vitamin B6 and doxylamine (brand name Unisom) is very effective for nausea/vomiting in . These are available over the counter. You may take 25mg vitamin B6 daily along with of a Unisom tablet ( 12.5mg). Please be aware that Unisom will make you sleepy; be careful driving after taking this medication. - You have been prescribed famotidine (Pepcid) that should be taken every day to prevent irritation from stomach acid. - You have also been prescribed Zofran (ondansetron) and Maalox liquid that can be used every 8 hours as needed for nausea and vomiting. - Follow up with your curriculum development manager within the next 1-2 weeks. - Seek immediate care if you have worsening symptoms, you are unable to keep down any food, you become dehydrated (stop urinating), you have any vaginal bleeding, or you have any other medical emergency. - Post Discharge Activity
[2019-08-19] MEDS ORDERED: ONDANSETRON 4 MG/2 ML VIAL ONE (21:11)
--- NOTE | 2019-08-19 21:12 | PDOC ---
Documentation entered by Armando Light SCRIBE, acting as scribe for Diane Jama MD. Diane Jama MD: This documentation has been prepared by the Nadege sol Nirvannie, SCRIBE, under my direction and personally reviewed by me in its entirety. I confirm that the documentation accurately reflects all work, treatment, procedures, and medical decision making performed by me. Attending Attestation - Resident Resident Name: KarinegentryKim - ED Attending Attestation I have performed the following: I have examined & evaluated the patient, The case was reviewed & discussed with the resident, I agree w/resident's findings & plan, Exceptions are as noted - HPI HPI: 08/19/19 21:10 29-year-old female returns emergency department with nausea vomiting diarrhea. HPI she was seen here on August [address] Osman for nausea and vomiting and at that time had a transvaginal ultrasound that showed a single live IUP of 6 weeks 1 day with heart tones of 108 She was discharged home with a prescription for Keflex for mild UTI Past medical history 2 para 1 - Physicial Exam PE: 08/19/19 21:11 Slender 29-year-old female presents in mild distress with epigastric pain nausea vomiting and diarrhea Head normocephalic atraumatic Neck is supple Lungs are clear to auscultation CVS regular rate and rhythm S1-S2 Abdomen epigastric pain Skin warm and dry Extremities full range of motion Neuro alert and oriented x3 - Medical Decision Making 08/19/19 22:56 Patient denies any vaginal bleeding or pelvic cramping CBC and chemistries are unremarkable Patient did receive antiemetics and IV fluids Impression hyperemesis gravidarum Plan follow-up with your MORTGAGE PROCESSOR
[2019-08-19 21:24] LABS: BASO % 0.2 % (0-2.0); HEMATOCRIT 38.7 % (32.4-45.2); HEMOGLOBIN 13.2 GM/dL (10.7-15.3); LYMPH % 13.5 % (8-40); MCH 29.4 pg (25.7-33.7); MCHC 34.1 g/dl (32.0-36.0); MEAN CELL VOLUME 86.2 fl (80-96); MEAN PLT VOLUME 10.1 fl (7.5-11.1); MONO % 2.7 % (3.8-10.2); NEUT % 83.6 % (42.8-82.8); PLATELET COUNT 162 K/MM3 (134-434); RBC 4.49 M/mm3 (3.60-5.2); RDW 12.9 % (11.6-15.6)
[2019-08-19] MEDS ORDERED: ACETAMINOPHEN 1000 MG/100 ML VIAL (NON FORMULARY) IVPB ONE (21:48)
[2019-08-19 22:08] LABS: ALBUMIN 4.6 g/dl (3.4-5.0); BILIRUBIN,TOTAL 0.4 mg/dL (0.2-1); CALCIUM 9.3 mg/dL (8.5-10.1); CREATININE 0.8 mg/dL (0.55-1.3); POTASSIUM 3.7 mmol/L (3.5-5.1)
[2019-08-19] MEDS ORDERED: ACETAMINOPHEN INJECTION 100 ML IVPB ONE (22:20)
--- NOTE | 2019-08-19 22:20 | PDOC ---
*Physical Exam - Vital Signs Last Vital Signs Temp Pulse Resp BP Pulse Ox 98.2 F 61 16 113/96 100 08/19/19 18:33 08/19/19 18:33 08/19/19 18:33 08/19/19 18:33 08/19/19 18:33 ED Treatment Course - LABORATORY CBC & Chemistry Diagram: 08/19/19 21:05 08/19/19 21:05 - ADDITIONAL ORDERS Additional order review: Laboratory Results 08/19/19 08/19/19 21:05 21:05 Sodium 137 Potassium 3.7 Chloride 105 Carbon Dioxide 23 Anion Gap 9 BUN 6.0 L Creatinine 0.8 Est GFR (CKD-EPI)AfAm 117.10 Est GFR (CKD-EPI)NonAf 101.04 Random Glucose 110 H Calcium 9.3 Magnesium 2.0 Total Bilirubin 0.4 AST 25 ALT 23 Alkaline Phosphatase 50 Total Protein 8.0 Albumin 4.6 08/19/19 21:05 RBC 4.49 MCV 86.2 MCHC 34.1 RDW 12.9 MPV 10.1 Neutrophils % 83.6 H D Lymphocytes % 13.5 D Monocytes % 2.7 L Eosinophils % 0.0 D Basophils % 0.2 - Medications Given in the ED: ED Medications Discontinued Medications Generic Name Dose Route Start Last Admin Trade Name Freq PRN Reason Stop Dose Admin Sodium Chloride 1,000 mls @ 1,000 mls/hr 08/19/19 18:32 08/19/19 21:19 Normal Saline - IV 08/19/19 19:31 1,000 mls/hr ASDIR STA Administration Ondansetron HCl 4 mg 08/19/19 18:32 08/19/19 21:15 Zofran Injection IVPUSH 08/19/19 18:33 4 mg ONCE ONE Administration Medical Decision Making - Medical Decision Making 08/19/19 22:20 Sign out received from Dr Shaver. Edwige Charlton is a 29yo woman currently 6w2d gestation (confirmed by US in the ED yesterday) who re-presents with abdominal pain, vomiting, and diarrhea. ED course so far notable for: - Labs unremarkable - UA, UCx not yet collected. - Zofran, IVF, acetaminophen for symptoms 08/19/19 22:55 - Pt still reporting epigastric pain - Will give maalox/lidocaine for continued symptoms 08/19/19 23:45 - Pt still reports some epigastric discomfort but has not vomited in the past 3- 4 hours in the ED - Requesting food - Discussed home care at length with Ms Charlton. Has an OB appointment scheduled for 08/21/19. Advised that symptoms may not resolve immediate but should improve with time. Recommending frequent meals, B6/doxylamine. Will send with SL zofran to use until OB follow up. Discussed with Dr Jama. Caren Meyers PGY2 Discharge - Discharge Information Problems reviewed: Yes Clinical Impression/Diagnosis: Excessive vomiting in Condition: Stable Disposition: HOME - Admission No - Follow up/Referral Referrals: Alfred Clemons MD [Primary Care Provider] - - Patient Discharge Instructions Patient Printed Discharge Instructions: DI for Hyperemesis Gravidarum Additional Instructions: Discharge Instructions: You were seen in the emergency department for nausea and vomiting duiring . Your blood tests did not show any abnormalities, and your symptoms improved with medications: Home Care and Follow Up: - Vomiting in early is common and is often not a cause for concern. - Eat small, frequent meals throughout the day. Consider keeping crackers or a small snack near your bed to eat as soon as you get up in the morning. - Make sure you are drinking plenty of fluids and staying well hydrated - A combination of vitamin B6 and doxylamine (brand name Unisom) is very effective for nausea/vomiting in . These are available over the counter. You may take 25mg vitamin B6 daily along with of a Unisom tablet ( 12.5mg). Please be aware that Unisom will make you sleepy; be careful driving after taking this medication. - You have been prescribed famotidine (Pepcid) that should be taken every day to prevent irritation from stomach acid. - You have also been prescribed Zofran (ondansetron) and Maalox liquid that can be used every 8 hours as needed for nausea and vomiting. - Follow up with your lay midwife within the next 1-2 weeks. - Seek immediate care if you have worsening symptoms, you are unable to keep down any food, you become dehydrated (stop urinating), you have any vaginal bleeding, or you have any other medical emergency. - Post Discharge Activity
[2019-08-19] MEDS ORDERED: LIDOCAINE VISCOUS 2% ORAL/TOP 20 ML UNIT-DOSE CUP MM ONE ×2 (22:56→23:22)
[2019-08-19] MEDS ORDERED: MAG HYDROX/AL HYDROX/SIMETH 30 ML UNIT-DOSE CUP PO ONE (22:56)
[2019-08-19] MEDS ORDERED: LIDOCAINE VISCOUS 2% ORAL/TOP 20 ML UNIT-DOSE CUP ONE (23:20)
[2019-08-19] MEDS ORDERED: MAG HYDROX/AL HYDROX/SIMETH 30 ML UNIT-DOSE CUP ONE (23:20)
[2019-08-20 02:46] VITALS: BP 144/75; PULSE 60; TEMP 98.4
== END 2019-08-20 00:15 | disposition home or self-care (01) ==
LOC: JER 17:57
PROC: 3E0337Z Introduction of Electrolytic and Water Balance Substance into Peripheral Vein, Percutaneous Approach (ICD-10-PCS; principal; 2019-08-19)
PROC: 3E033NZ Introduction of Analgesics, Hypnotics, Sedatives into Peripheral Vein, Percutaneous Approach (ICD-10-PCS; 2019-08-19)
PROC: 3E033GC Introduction of Other Therapeutic Substance into Peripheral Vein, Percutaneous Approach (ICD-10-PCS; 2019-08-19)
DX: O26.891 Other specified pregnancy related conditions, first trimester (principal); O21.0 Mild hyperemesis gravidarum; Z3A.01 Less than 8 weeks gestation of pregnancy; Z87.440 Personal history of urinary (tract) infections
CPT/HCPCS: 36415; 80053; 83735; 85025; 96361; 96374; 96375; 99283-25; J0131; J7030

== ENCOUNTER 2019-08-23 06:44 | Inpatient (IN) | payer OTHER ==
[2019-08-23 07:14] VITALS: BMI 22.4
--- NOTE | 2019-08-23 08:28 | PDOC ---
History of Present Illness - General Chief Complaint: Vaginal Sxs Stated Complaint: VAGINAL DISCHARGE/6WKS Time Seen by Provider: 08/23/19 07:41 - History of Present Illness Initial Comments: Ms. Charlton is a 29 y/o female @ 6 weeks presenting today with vaginal discharge. Reports that she was taking a bath this morning and drinking an icee when she started feeling nauseated and vomited. Reports that she then noticed some white vaginal discharge down her leg. No bloody discharge. Reports that this white vaginal discharge is new and is what prompted her to come to the ED. Reports that she has been feeling nauseated and vomiting for the past two weeks of this , associated with abdominal cramping. Denies fever/chills. Denies chest pain/shortness of breath. Denies leg swelling. Denies dysuria. OB: 2 mikael batres Past History - Past Medical History Allergies/Adverse Reactions: Allergies Allergy/AdvReac Type Severity Reaction Status Date / Time No Known Allergies Allergy Verified 08/23/19 07:11 Home Medications: Ambulatory Orders Mv-Mn/Iron/FA/Herbal/Digestive [ One Tablet] 1 each PO DAILY 02/15/15 Cephalexin Monohydrate [Keflex -] 500 mg PO Q6H 5 Days #20 capsule 08/18/19 Acetaminophen [Pain Relief] 650 mg PO Q8H PRN #30 tablet.er 08/19/19 Famotidine [Pepcid] 20 mg PO DAILY #30 tablet 08/19/19 Mag Hydrox/Aluminum Hyd/Simeth [Maalox Advanced Suspension] 30 ml PO TID PRN #1 bottle 08/19/19 Ondansetron [Zofran *Odt*] 4 mg SL TID PRN #21 od.tablet 08/19/19 Doxylamine Succinate [Nighttime Sleep-Aid] 25 mg PO DAILY #30 tablet 08/23/19 Pyridoxine HCl (Vitamin B6) [Vitamin B-6] 25 mg PO DAILY #30 tablet 08/23/19 Terconazole 80 mg VG DAILY 3 Days #3 supp.vag 08/23/19 Asthma: No Cancer: No Cardiac Disorders: No COPD: No Diabetes: No HTN: No Seizures: No Thyroid Disease: No - Reproductive History (#): 2 Para: 1 Therapeutic (s) & number: No - Immunization History Td Vaccination: Yes TDAP Vaccination: No Immunization Up to Date: Yes - Psycho Social/Smoking Cessation Hx Smoking Status: No Smoking History: Never smoked Years of Tobacco Use: 0 Have you smoked in the past 12 months: No Number of Cigarettes Smoked Daily: 0 Cigars Per Day: 0 Hx Alcohol Use: No Drug/Substance Use Hx: No Substance Use Type: None Hx Substance Use Treatment: No Abd/GI Specific PMHX - Complaint Specific PMHX GERD: No Review of Systems - Review of Systems Comments:: GENERAL/CONSTITUTIONAL: No fever or chills. No weakness._ HEAD, EYES, EARS, NOSE AND THROAT: No change in vision. No change in hearing. No sore throat._ CARDIOVASCULAR: No chest pain or shortness of breath_ RESPIRATORY: Denies cough, hemoptysis_ GASTROINTESTINAL: Reports nausea, vomiting, abdominal cramps. GENITOURINARY: Reports white vaginal discharge. MUSCULOSKELETAL: No joint or muscle swelling or pain. No neck or back pain._ SKIN: No rash_ NEUROLOGIC: No headache, vertigo, loss of consciousness, or change in strength/ sensation._ ENDOCRINE: No increased thirst. No abnormal weight change_ HEMATOLOGIC/LYMPHATIC: No anemia, easy bleeding, or history of blood clots._ ALLERGIC/IMMUNOLOGIC: No hives or skin allergy._ *Physical Exam - Vital Signs Last Vital Signs Temp Pulse Resp BP Pulse Ox 98.2 F 60 18 122/76 99 08/23/19 07:11 08/23/19 07:11 08/23/19 07:11 08/23/19 07:11 08/23/19 07:11 - Physical Exam GENERAL: Awake, alert, and oriented to person/place/time, in no acute distress_ HEAD: No signs of trauma, normoc ephalic, atraumatic _ EYES: PERRLA, EOMI, sclera anicteric, conjunctiva clear_ ENT: Hearing grossly normal, nares patent, oropharynx clear without exudates. No uvular deviation. Moist mucosa_ NECK: Normal ROM, supple, no lymphadenopathy, JVD, or masses_ LUNGS: No distress, speaks in full sentences, clear to auscultation bilaterally _ HEART: Regular rate and rhythm, normal S1 and S2, no murmurs appreciated, peripheral pulses normal and equal bilaterally._ ABDOMEN: Soft, mild epigastric TTP, normoactive bowel sounds. No guarding, no rebound. No masses_ EXTREMITIES: Normal inspection, Normal range of motion, no edema. No clubbing or cyanosis_ NEUROLOGICAL: Cranial nerves II through XII grossly intact. Normal speech, normal gait, no focal sensorimotor deficits _ SKIN: Warm, Dry, normal turgor, no rashes or lesions noted_ PELVIC: Normal external exam. Os closed. No bleeding. Moderate white discharge in posterior fornix. No CMT. No adnexal tenderness. ED Treatment Course - LABORATORY CBC & Chemistry Diagram: 08/23/19 10:25 08/23/19 10:25 Medical Decision Making - Medical Decision Making 08/23/19 08:32 29F @ 6 weeks presenting with white vaginal discharge. -ua -GC swab -tylenol, zofran 08/23/19 09:26 Pelvic shows milky white discharge in the posterior fornix. Pt was given abx recently for UTI. Plan to d/c home with terconazole 80 mg 3 days, f/u PCP and OB PRN. D/w the patient who verbalized agreement with the plan. All questions answered. Return precautions given. 08/23/19 10:07 Pt not tolerating PO. -cbc, cmp -D5-NS 08/23/19 11:52 Pt still not able to tolerate PO liquids. -reglan 08/23/19 12:10 Labs reviewed. K low at 2.9. Plan to admit. -d5 NS + 40 meq K Laboratory Last Values WBC 8.3 K/mm3 (4.0-10.0) 08/23/19 10:25 RBC 4.71 M/mm3 (3.60-5.2) 08/23/19 10:25 Hgb 13.8 GM/dL (10.7-15.3) 08/23/19 10:25 Hct 40.3 % (32.4-45.2) 08/23/19 10:25 MCV 85.5 fl (80-96) 08/23/19 10:25 MCH 29.2 pg (25.7-33.7) 08/23/19 10:25 MCHC 34.2 g/dl (32.0-36.0) 08/23/19 10:25 RDW 12.9 % (11.6-15.6) 08/23/19 10:25 Plt Count 195 K/MM3 (134-434) D 08/23/19 10:25 MPV 9.9 fl (7.5-11.1) 08/23/19 10:25 Absolute Neuts (auto) 4.6 K/mm3 (1.5-8.0) 08/23/19 10:25 Neutrophils % 55.4 % (42.8-82.8) D 08/23/19 10:25 Lymphocytes % 35.2 % (8-40) D 08/23/19 10:25 Monocytes % 8.9 % (3.8-10.2) D 08/23/19 10:25 Eosinophils % 0.2 % (0-4.5) D 08/23/19 10:25 Basophils % 0.3 % (0-2.0) 08/23/19 10:25 Nucleated RBC % 0 % (0-0) 08/23/19 10:25 Sodium 135 mmol/L (136-145) L 08/23/19 10:25 Potassium 2.9 mmol/L (3.5-5.1) L* 08/23/19 10:25 Chloride 101 mmol/L (98-107) 08/23/19 10:25 Carbon Dioxide 26 mmol/L (21-32) 08/23/19 10:25 Anion Gap 8 MMOL/L (8-16) 08/23/19 10:25 BUN 11.0 mg/dL (7-18) 08/23/19 10:25 Creatinine 0.7 mg/dL (0.55-1.3) 08/23/19 10:25 Est GFR (CKD-EPI)AfAm 137.62 08/23/19 10:25 Est GFR (CKD-EPI)NonAf 118.74 08/23/19 10:25 Random Glucose 94 mg/dL (74-106) 08/23/19 10:25 Calcium 9.4 mg/dL (8.5-10.1) 08/23/19 10:25 Total Bilirubin 0.8 mg/dL (0.2-1) 08/23/19 10:25 AST 19 U/L (15-37) 08/23/19 10:25 ALT 25 U/L (13-61) 08/23/19 10:25 Alkaline Phosphatase 50 U/L (45-117) 08/23/19 10:25 Total Protein 7.8 g/dl (6.4-8.2) 08/23/19 10:25 Albumin 4.6 g/dl (3.4-5.0) 08/23/19 10:25 Lipase 175 U/L (73-393) 08/23/19 10:25 Urine Color Dk yellow 08/23/19 08:50 Urine Appearance Cloudy 08/23/19 08:50 Urine pH >= 9.0 (5.0-8.0) H 08/23/19 08:50 Ur Specific [place] 1.040 (1.010-1.035) H 08/23/19 08:50 Urine Protein 4+ (NEGATIVE) H 08/23/19 08:50 Urine Glucose (UA) Negative (NEGATIVE) 08/23/19 08:50 Urine Ketones 1+ (NEGATIVE) H 08/23/19 08:50 Urine Blood Negative (NEGATIVE) 08/23/19 08:50 Urine Nitrite Positive (NEGATIVE) H 08/23/19 08:50 Urine Bilirubin 1+ (NEGATIVE) H 08/23/19 08:50 Urine Urobilinogen 1.0 mg/dL (0.2-1.0) 08/23/19 08:50 Ur Leukocyte Esterase Negative (NEGATIVE) 08/23/19 08:50 Urine WBC (Auto) 4 /hpf (0-5) 08/23/19 08:50 Urine RBC (Auto) 3 /hpf (0-4) 08/23/19 08:50 Urine Casts (Auto) 29 /lpf (0-8) 08/23/19 08:50 U Epithel Cells (Auto) 9.4 /HPF (0-5/HPF) 08/23/19 08:50 Urine Bacteria (Auto) 19.1 /hpf (NEGATIVE) 08/23/19 08:50 08/23/19 13:00 D/w Dr. Paz who accepts the patient for admission. Discharge - Discharge Information Problems reviewed: Yes Clinical Impression/Diagnosis: Hyperemesis gravidarum, Hypokalemia Condition: Stable - Admission Yes - Additional Discharge Information Prescriptions: Doxylamine Succinate [Nighttime Sleep-Aid] 25 mg PO DAILY #30 tablet Pyridoxine HCl (Vitamin B6) [Vitamin B-6] 25 mg PO DAILY #30 tablet Terconazole 80 mg VG DAILY 3 Days #3 supp.vag - Follow up/Referral Referrals: Alfred Clemons MD [Primary Care Provider] - - Patient Discharge Instructions - Post Discharge Activity
[2019-08-23] MEDS ORDERED: ONDANSETRON *ODT* 4 MG TABLET ONE (08:45)
[2019-08-23] MEDS ORDERED: ACETAMINOPHEN 325 MG TABLET (FP) ONE (08:45)
--- NOTE | 2019-08-23 09:25 | PDOC ---
Attending Attestation - Resident Resident Name: Clovis Nghan - ED Attending Attestation I have performed the following: I have examined & evaluated the patient, The case was reviewed & discussed with the resident, I agree w/resident's findings & plan, Exceptions are as noted - HPI HPI: 08/23/19 09:15 29 F, @ 6 weeks, presents to ED with vaginal discharge. Patient notes she was in the bathroom this morning when she noticed white vaginal discharge running down her leg, without any blood. Patient notes she has had nausea, vomit , and abdominal cramping associated with her . She was evaluated here 5 days ago for this and had normal work up, including US confirming IUP. Pt states that the vaginal discharge is what prompted her to return to the ED. Denies F/C. Denies dysuria. - Physicial Exam PE: 08/23/19 09:19 See resident exam - Medical Decision Making 08/23/19 09:19 29 F with white vaginal discharge. Will evaluate for vaginal candidiasis. Pt was recently on abx for UTI. - Pelvic exam - GC/CT swab - UA/UCx 08/23/19 09:31 Pelvic shows likely candidal vaginitis. Will tx with antifungal suppository Pt is well appearing, with normal vitals. Clinically stable for DC at this time. I discussed the physical exam findings, ancillary test results and final diagnoses with the patient. I answered all of the patient's questions. The patient was satisfied with the care received and felt comfortable with the discharge plan and treatment plan. The patient agrees to follow up with the primary care physician within 24-72 hours.
[2019-08-23] MEDS ORDERED: PYRIDOXINE HCL (B-6) 50 MG TABLET (FP) PO ONE (09:41)
[2019-08-23] MEDS ORDERED: ACETAMINOPHEN 325 MG TABLET (FP) PO ONE (10:04)
[2019-08-23] MEDS ORDERED: ONDANSETRON *ODT* 4 MG TABLET SL ONE (10:04)
[2019-08-23] MEDS ORDERED: DEXTROSE 5%-NORMAL SALINE 1,000 ML IV ONE (10:07)
[2019-08-23 10:21] LABS: EPI CELLS 9.4 /HPF (0-5/HPF); HYALINE CASTS 29 /lpf (0-8); PH,URINE >= 9.0 (5.0-8.0); URINE APPEARANCE CLOUDY; URINE BACTERIA 19.1 /hpf (NEGATIVE); URINE BILIRUBIN 1+ (NEGATIVE); URINE COLOR DK YELLOW; URINE GLUCOSE (UA) NEGATIVE (NEGATIVE); URINE KETONE 1+ (NEGATIVE); URINE LEUK ESTERASE NEGATIVE (NEGATIVE); URINE NITRITE POSITIVE (NEGATIVE); URINE PROTEIN 4+ (NEGATIVE); URINE RBC 3 /hpf (0-4); URINE WBC 4 /hpf (0-5)
[2019-08-23 10:45] LABS: BASO % 0.3 % (0-2.0); EOS % 0.2 % (0-4.5); HEMATOCRIT 40.3 % (32.4-45.2); HEMOGLOBIN 13.8 GM/dL (10.7-15.3); LYMPH % 35.2 % (8-40); MCH 29.2 pg (25.7-33.7); MCHC 34.2 g/dl (32.0-36.0); MEAN CELL VOLUME 85.5 fl (80-96); MEAN PLT VOLUME 9.9 fl (7.5-11.1); MONO % 8.9 % (3.8-10.2); NEUT % 55.4 % (42.8-82.8); PLATELET COUNT 195 K/MM3 (134-434); RBC 4.71 M/mm3 (3.60-5.2); RDW 12.9 % (11.6-15.6); WHITE BLOOD COUNT 8.3 K/mm3 (4.0-10.0)
[2019-08-23 11:44] LABS: ALBUMIN 4.6 g/dl (3.4-5.0); BILIRUBIN,TOTAL 0.8 mg/dL (0.2-1); CALCIUM 9.4 mg/dL (8.5-10.1); CREATININE 0.7 mg/dL (0.55-1.3); TOT PROT 7.8 g/dl (6.4-8.2)
[2019-08-23] MEDS ORDERED: METOCLOPRAMIDE HCL INJECTION 10 MG/2 ML VIAL IVPUSH ONE (11:52)
[2019-08-23 12:06] LABS: POTASSIUM 2.9 mmol/L (3.5-5.1)
[2019-08-23] MEDS ORDERED: METOCLOPRAMIDE HCL INJECTION 10 MG/2 ML VIAL ONE (12:07)
[2019-08-23] MEDS ORDERED: D5-NS + 40 MEQ KCL - 40 MEQ/1,000 ML INFUS.BAG IV SCH (12:15)
[2019-08-23] MEDS ORDERED: POTASSIUM CHLORIDE 20 MEQ PREMIX IVPB 100 ML IVPB ONE (12:53)
[2019-08-23] MEDS ORDERED: KCL 10 MEQ IVPB 20 MEQ/200 ML INFUS.BAG IVPB ONE (13:03)
[2019-08-23] MEDS ORDERED: DEXTROSE 5%-0.45% SALINE 1,000 ML IV SCH ×2 (16:15)
--- NOTE | 2019-08-23 16:16 | HP ---
Admitting History and Physical - Admission History of Present Illness: Pt is a 29 y/o female who is 6 weeks . Pt now presents to the ER with vaginal discharge. Reports that she was taking a bath this morning and drinking an ice when she started feeling nauseated and vomited. Reports that she then noticed some white vaginal discharge down her leg. No bloody discharge. Reports that this white vaginal discharge is new and is what prompted her to come to the ED. Pt states that she has had nausea and vomiting for the past 2 weeks and was found to have low K+ levels. - Past Medical History ...LMP: 07/13/19 ...: Yes - Past Surgical History Past Surgical History: Yes: None - Smoking History Smoking history: Never smoked Have you smoked in the past 12 months: No Aproximately how many cigarettes per day: 0 - Alcohol/Substance Use Hx Alcohol Use: No - Social History History of Recent Travel: No Home Medications - Allergies Allergies/Adverse Reactions: Allergies Allergy/AdvReac Type Severity Reaction Status Date / Time No Known Allergies Allergy Verified 08/23/19 07:11 - Home Medications Home Medications: Ambulatory Orders Mv-Mn/Iron/FA/Herbal/Digestive [ One Tablet] 1 each PO DAILY 02/15/15 Cephalexin Monohydrate [Keflex -] 500 mg PO Q6H 5 Days #20 capsule 08/18/19 Acetaminophen [Pain Relief] 650 mg PO Q8H PRN #30 tablet.er 08/19/19 Famotidine [Pepcid] 20 mg PO DAILY #30 tablet 08/19/19 Mag Hydrox/Aluminum Hyd/Simeth [Maalox Advanced Suspension] 30 ml PO TID PRN #1 bottle 08/19/19 Ondansetron [Zofran *Odt*] 4 mg SL TID PRN #21 od.tablet 08/19/19 Doxylamine Succinate [Nighttime Sleep-Aid] 25 mg PO DAILY #30 tablet 08/23/19 Pyridoxine HCl (Vitamin B6) [Vitamin B-6] 25 mg PO DAILY #30 tablet 08/23/19 Terconazole 80 mg VG DAILY 3 Days #3 supp.vag 08/23/19 Family Medical History Family History: Unremarkable Review of Systems - Review of Systems Constitutional: reports: No Symptoms Eyes: reports: No Symptoms HENT: reports: No Symptoms Neck: reports: No Symptoms Cardiovascular: reports: No Symptoms Respiratory: reports: No Symptoms Gastrointestinal: reports: Nausea, Vomiting Physical Examination Vital Signs: Vital Signs Temperature 97.8 F 08/23/19 14:40 Pulse Rate 68 08/23/19 14:40 Respiratory Rate 18 08/23/19 07:11 Blood Pressure 168/75 08/23/19 14:40 O2 Sat by Pulse Oximetry (%) 99 08/23/19 14:40 Constitutional: Yes: No Distress Eyes: Yes: WNL HENT: Yes: WNL Neck: Yes: WNL, Supple Cardiovascular: Yes: WNL, Regular Rate and Rhythm Respiratory: Yes: WNL, Regular, CTA Bilaterally Gastrointestinal: Yes: WNL, Normal Bowel Sounds, Soft Extremities: Yes: WNL Edema: No Neurological: Yes: WNL, Alert, Oriented ...Motor Strength: WNL Labs: CBC, BMP 08/23/19 10:25 08/23/19 10:25 Problem List - Problems (1) Hypokalemia Assessment/Plan: Replace K+ and monitor levels Code(s): E87.6 - HYPOKALEMIA (2) Excessive vomiting in Assessment/Plan: Start IV hydration Slowly advance diet as tolerated Code(s): O21.9 - VOMITING OF , UNSPECIFIED (3) with 6 completed weeks gestation Assessment/Plan: STAFF RADIOGRAPHER consult Code(s): Z3A.01 - LESS THAN 8 WEEKS GESTATION OF
[2019-08-23] MEDS: MAG HYDROX/AL HYDROX/SIMETH 30 ML UNIT-DOSE CUP PO PRN (21:21)
--- NOTE | 2019-08-23 22:14 | CON.OBG ---
Consult Consult Specialty:: 6 weeks , pregn with hyperemesis, dehydration, electrolyte imbalance - History of Present Illness Chief Complaint: 29 yrs , lmp 07/13/19 , 6 weeks gestation is admitted due to correction of fluid & electrolyte imbalance due to vomiting. pt receieved zofran iv iv reglan , still nausea continued History of Present Illness: pt c/o epigastric pain, followed by pain all over the abdomen she has vomiting on & off for past 2 wks she was seen in ED 1 wk ago 08/18/19, was diagnosed uti rx po keflex given pt did not complete course of antibitics due to nausea & vomiting c/o vaginal discharge, no itching pt states she was seen twice for ciurrent pregn at [address] [place] [address] 08/18/19 sono reported as 6,1 weeks sliup , fhr 108bpm, small 2.1cm rt ov cyst EDC 04/10/20 p - History Source History Provided By: Patient Limitations to Obtaining History: No Limitations - Past Medical History FOIL SPINNER: No: Migraine Cardio/Vascular: No: HTN, Murmur Pulmonary: No: Asthma Gastrointestinal: Yes: Other (epigastric pain, nausea, , declines h/o gastritis or peptic ulcer or gerd ) Hepatobiliary: Yes: Other (no h/o gall stones) Renal/: Yes: UTI (rx po keflex) ...LMP: 07/13/19 (by dates edc 04/20/20 ) ...: Yes ...: 2 ( 04/10/2020 7 weeks by sono ) ...Para: 1 (1 02/20/2015 6lb, nocomplocations ) Heme/Onc: Yes: Other (declines) Infectious Disease: Yes: Other (declines std) Psych: No: Addictions, Anxiety, Bipolar, Depression, Panic, Psychosis, Schizophrenia, Other Endocrine: No: Diabetes Mellitus, Hyperthyroidism, Hypothyroidism - Past Surgical History Past Surgical History: Yes: None - Alcohol/Substance Use Hx Alcohol Use: No History of Substance Use: reports: None - Smoking History Smoking history: Never smoked Have you smoked in the past 12 months: No Aproximately how many cigarettes per day: 0 - Social History History of Recent Travel: No Home Medications - Allergies Allergies/Adverse Reactions: Allergies Allergy/AdvReac Type Severity Reaction Status Date / Time No Known Allergies Allergy Verified 08/23/19 07:11 - Home Medications Home Medications: Ambulatory Orders Mv-Mn/Iron/FA/Herbal/Digestive [ One Tablet] 1 each PO DAILY 02/15/15 Cephalexin Monohydrate [Keflex -] 500 mg PO Q6H 5 Days #20 capsule 08/18/19 Acetaminophen [Pain Relief] 650 mg PO Q8H PRN #30 tablet.er 08/19/19 Famotidine [Pepcid] 20 mg PO DAILY #30 tablet 08/19/19 Mag Hydrox/Aluminum Hyd/Simeth [Maalox Advanced Suspension] 30 ml PO TID PRN #1 bottle 08/19/19 Ondansetron [Zofran *Odt*] 4 mg SL TID PRN #21 od.tablet 08/19/19 Doxylamine Succinate [Nighttime Sleep-Aid] 25 mg PO DAILY #30 tablet 08/23/19 Pyridoxine HCl (Vitamin B6) [Vitamin B-6] 25 mg PO DAILY #30 tablet 08/23/19 Terconazole 80 mg VG DAILY 3 Days #3 supp.vag 08/23/19 Physical Exam-CAREER CENTER DIRECTOR Vital Signs: Vital Signs Temperature 99.3 F 08/23/19 19:51 Pulse Rate 69 08/23/19 19:51 Respiratory Rate 20 08/23/19 19:51 Blood Pressure 132/78 08/23/19 19:51 O2 Sat by Pulse Oximetry (%) 99 08/23/19 14:40 Constitutional: Yes: Well Nourished, Other (pt is constantly spitting mildly dehydrated) Eyes: Yes: WNL HENT: Yes: WNL, Normocephalic Neck: Yes: WNL Cardiovascular: Yes: WNL Respiratory: Yes: WNL Gastrointestinal: Yes: WNL, Normal Bowel Sounds, Soft, Vomiting. No: Tenderness , Epigastrium, Tenderness, Rebound ...Rectal Exam: Yes: Deferred Renal/: Yes: WNL. No: CVA Tenderness - Left, CVA Tenderness - Right External Genitalia: Yes: Normal Vaginal Exam: Yes: Normal, Discharge (normal discharge) Cervix: Yes: Normal. No: Bleeding, Cerv Motion Tenderness Uterus: Yes: Anteverted, Enlarged (6 weeks size), Soft Adnexa: Normal: Bilateral (non tender ), Not Palpable: Bilateral Breast(s): Yes: WNL Musculoskeletal: Yes: WNL Extremities: Yes: WNL. No: Calf Tenderness Edema: No Integumentary: Yes: WNL Labs: CBC, BMP 08/23/19 10:25 08/23/19 10:25 Problem List - Problems (1) with 6 completed weeks gestation Code(s): Z3A.01 - LESS THAN 8 WEEKS GESTATION OF (2) Hyperemesis gravidarum Code(s): O21.0 - MILD HYPEREMESIS GRAVIDARUM (3) Hypokalemia Code(s): E87.6 - HYPOKALEMIA Assessment/Plan plan ct iv hydration k rplacement management as per lauryn
[2019-08-23] MEDS ORDERED: ONDANSETRON 4 MG/2 ML VIAL IVPUSH PRN (23:12)
[2019-08-23] MEDS: POTASSIUM CHLORIDE TABS 10 MEQ TABLET.ER (FP) PO SCH (23:57)
[2019-08-24] MEDS ORDERED: PYRIDOXINE HCL IVPB ONE
[2019-08-24] MEDS ORDERED: DEXTROSE IVPB ONE
[2019-08-24] MEDS ORDERED: [UNRECOGNIZED DRUG - OTHER] IVPB ONE
[2019-08-24] MEDS: MAG HYDROX/AL HYDROX/SIMETH 30 ML UNIT-DOSE CUP PO PRN (04:46)
[2019-08-24] MEDS: POTASSIUM CHLORIDE TABS 10 MEQ TABLET.ER (FP) PO SCH ×2 (06:50→14:00)
[2019-08-24 08:30] LABS: BASO % 0.3 % (0-2.0); EOS % 1.2 % (0-4.5); HEMOGLOBIN 12.7 GM/dL (10.7-15.3); LYMPH % 35.4 % (8-40); MCH 28.9 pg (25.7-33.7); MCHC 33.3 g/dl (32.0-36.0); MEAN CELL VOLUME 86.6 fl (80-96); MEAN PLT VOLUME 10.3 fl (7.5-11.1); NEUT % 54.1 % (42.8-82.8); PLATELET COUNT 183 K/MM3 (134-434); RBC 4.39 M/mm3 (3.60-5.2); RDW 12.7 % (11.6-15.6); WHITE BLOOD COUNT 9.5 K/mm3 (4.0-10.0)
[2019-08-24 08:54] LABS: BILIRUBIN,TOTAL 0.5 mg/dL (0.2-1); BLOOD UREA NITROGEN 4.7 mg/dL (7-18); CALCIUM 8.6 mg/dL (8.5-10.1); CREATININE 0.7 mg/dL (0.55-1.3); POTASSIUM 3.1 mmol/L (3.5-5.1); TOT PROT 6.8 g/dl (6.4-8.2)
--- NOTE | 2019-08-24 09:31 | PN ---
Progress Note (short form) - Note Progress Note: pt states she was vomiting last night she c/o epigastric pain excessive salivation, spitting constantly Selected Entries 08/24/19 04:43 Temperature 98.5 F Pulse Rate 74 Blood Pressure 111/65 Laboratory Tests 08/24/19 08/24/19 08:01 08:01 WBC 9.5 RBC 4.39 Hgb 12.7 Hct 38.0 Plt Count 183 Sodium 135 L Potassium 3.1 L Chloride 103 Carbon Dioxide 26 Anion Gap 6 L BUN 4.7 L Creatinine 0.7 Random Glucose 86 Calcium 8.6 Total Bilirubin 0.5 AST 17 ALT 24 Total Protein 6.8 urine c/s & ct/gc pending imp Gastritis , hyperemesis, dehydration, hypokalemia plan 10 meq KCL [id number] i inquired from pharmacy,does not have Doxylamine with Pyridoxine available on formulary GB sono to r/o gallstones ct iv fluids po small , frequent sips Problem List - Problems (1) with 6 completed weeks gestation Code(s): Z3A.01 - LESS THAN 8 WEEKS GESTATION OF (2) Hyperemesis gravidarum Code(s): O21.0 - MILD HYPEREMESIS GRAVIDARUM (3) Hypokalemia Code(s): E87.6 - HYPOKALEMIA
[2019-08-24] MEDS ORDERED: KCL 10 MEQ IVPB 10 MEQ/100 ML INFUS.BAG IVPB SCH (10:00)
[2019-08-24] MEDS ORDERED: DEXTROSE 5%-LACTATED RINGERS 1,000 ML IV SCH (10:00)
[2019-08-24] MEDS: KCL 10 MEQ IVPB 10 MEQ/100 ML INFUS.BAG IVPB SCH ×5 (12:53→19:12)
[2019-08-24] MEDS ORDERED: POTASSIUM CHLORIDE TABS 20 MEQ TABLET.ER (FP) PO ONE (16:45)
[2019-08-24] MEDS ORDERED: DEXTROSE 5%-0.45% SALINE 1,000 ML IV SCH (18:45)
--- NOTE | 2019-08-24 20:33 | PN ---
Progress Note, Physician History of Present Illness: Pt feeling better - Current Medication List Current Medications: Active Medications Al Hydroxide/Mg Hydroxide (Mylanta Oral Suspension -) 30 ml PO Q6H PRN PRN Reason: ABDOMINAL PAIN Last Admin: 08/24/19 04:46 Dose: 30 ml Dextrose/Sodium Chloride (D5-1/2ns -) 1,000 mls @ 75 mls/hr IV ASDIR JANNETH Last Admin: 08/24/19 19:00 Dose: 75 mls/hr Ondansetron HCl (Zofran Injection) 4 mg IVPUSH Q6H PRN PRN Reason: NAUSEA AND/OR VOMITING Last Admin: 08/24/19 04:46 Dose: 4 mg - Objective Vital Signs: Vital Signs Temperature 99.4 F 08/24/19 18:00 Pulse Rate 72 08/24/19 18:00 Respiratory Rate 18 08/24/19 18:00 Blood Pressure 122/68 08/24/19 18:00 O2 Sat by Pulse Oximetry (%) 99 08/23/19 14:40 Cardiovascular: Yes: WNL, Regular Rate and Rhythm Respiratory: Yes: WNL, Regular, CTA Bilaterally Gastrointestinal: Yes: WNL, Normal Bowel Sounds, Soft Labs: CBC, BMP 08/24/19 08:01 08/24/19 08:01 Problem List - Problems (1) Hypokalemia Assessment/Plan: Replace K+ and monitor levels Code(s): E87.6 - HYPOKALEMIA (2) Excessive vomiting in Assessment/Plan: Cont IV hydration Slowly advance diet as tolerated ?Possible dc planning in am Code(s): O21.9 - VOMITING OF , UNSPECIFIED (3) with 6 completed weeks gestation Assessment/Plan: MANAGER EXCHANGE consult Code(s): Z3A.01 - LESS THAN 8 WEEKS GESTATION OF
[2019-08-25 09:01] LABS: BLOOD UREA NITROGEN 5.2 mg/dL (7-18); CALCIUM 8.4 mg/dL (8.5-10.1); CREATININE 0.6 mg/dL (0.55-1.3); POTASSIUM 3.3 mmol/L (3.5-5.1)
--- NOTE | 2019-08-25 10:27 | PN ---
Progress Note (short form) - Note Progress Note: no c/o pain in epigastric area no vomiting , no nausea she is requesting discharge if she is ok. pt is tolerating , reg diet well , drinking po fluids Selected Entries 08/25/19 08:10 Temperature Oral Source Pulse Rate 56 L Blood Pressure 107/55 L Laboratory Tests 08/25/19 08:17 Sodium 135 L Potassium 3.3 L Chloride 105 Carbon Dioxide 26 Anion Gap 4 L BUN 5.2 L Creatinine 0.6 Est GFR (CKD-EPI)AfAm 144.78 Est GFR (CKD-EPI)NonAf 124.92 Random Glucose 82 Calcium 8.4 L pt is not dehydrated Plan 10 meq kcl ivpb x1 dose pt can be discharged today no need to repeat bmp Problem List - Problems (1) with 6 completed weeks gestation Code(s): Z3A.01 - LESS THAN 8 WEEKS GESTATION OF (2) Hyperemesis gravidarum Code(s): O21.0 - MILD HYPEREMESIS GRAVIDARUM (3) Hypokalemia Code(s): E87.6 - HYPOKALEMIA
[2019-08-25] MEDS ORDERED: KCL 10 MEQ IVPB 10 MEQ/100 ML INFUS.BAG IVPB SCH (10:30)
[2019-08-25] MEDS ORDERED: POTASSIUM CHLORIDE TABS 20 MEQ TABLET.ER (FP) PO ONE (16:45)
--- NOTE | 2019-08-25 23:24 | PN ---
Progress Note, Physician History of Present Illness: Pt tolerating diet No further vomiting - Current Medication List Current Medications: Active Medications Al Hydroxide/Mg Hydroxide (Mylanta Oral Suspension -) 30 ml PO Q6H PRN PRN Reason: ABDOMINAL PAIN Last Admin: 08/24/19 04:46 Dose: 30 ml Ondansetron HCl (Zofran Injection) 4 mg IVPUSH Q6H PRN PRN Reason: NAUSEA AND/OR VOMITING Last Admin: 08/24/19 04:46 Dose: 4 mg - Objective Vital Signs: Vital Signs Temperature 98.4 F 08/25/19 21:32 Pulse Rate 61 08/25/19 21:32 Respiratory Rate 18 08/25/19 21:32 Blood Pressure 104/51 L 08/25/19 21:32 O2 Sat by Pulse Oximetry (%) 99 08/23/19 14:40 Cardiovascular: Yes: WNL, Regular Rate and Rhythm Respiratory: Yes: WNL, Regular, CTA Bilaterally Gastrointestinal: Yes: WNL, Normal Bowel Sounds, Soft Labs: CBC, BMP 08/24/19 08:01 08/25/19 08:17 Problem List - Problems (1) Hypokalemia Assessment/Plan: Replace K+ and monitor levels Probable dc planning for am Code(s): E87.6 - HYPOKALEMIA (2) Excessive vomiting in Assessment/Plan: Cont IV hydration Slowly advance diet as tolerated ?Possible dc planning in am Code(s): O21.9 - VOMITING OF , UNSPECIFIED (3) with 6 completed weeks gestation Assessment/Plan: CONTACT AND SERVICE CLERKS SUPERVISOR consult Code(s): Z3A.01 - LESS THAN 8 WEEKS GESTATION OF
[2019-08-26 09:25] VITALS: BP 121/51; PULSE 59; TEMP 98
[2019-08-26 12:20] LABS: BLOOD UREA NITROGEN 4.1 mg/dL (7-18); CALCIUM 8.6 mg/dL (8.5-10.1); CREATININE 0.6 mg/dL (0.55-1.3); POTASSIUM 3.9 mmol/L (3.5-5.1)
== END 2019-08-26 17:48 | disposition home or self-care (01) | DRG 566 ==
LOC: JER 06:44 → JERBED 13:11 → J3W 15:16
PROVIDERS: ADMIT Internal Medicine; ATTEND Internal Medicine
DX: O21.1 Hyperemesis gravidarum with metabolic disturbance (principal); Z3A.01 Less than 8 weeks gestation of pregnancy; E86.0 Dehydration
CPT/HCPCS: 36415; 76705-TC; 80048; 80053; 81003; 83690; 85025; 87086; 87491; 87591; 99284-25; Q0162

== ENCOUNTER 2019-08-31 14:09 | Emergency (ER) | payer OTHER ==
[2019-08-31 14:38] VITALS: BP 121/53; PULSE 65; TEMP 98.1; BMI 20.7
--- NOTE | 2019-08-31 16:33 | PDOC ---
History of Present Illness - General Chief Complaint: Wound Stated Complaint: VAGNIAL BLEED 7WKS PRG Time Seen by Provider: 08/31/19 16:25 History Source: Patient Exam Limitations: No Limitations - History of Present Illness Initial Comments: 08/31/19 16:36 HISTORY OF PRESENT ILLNESS: 29-year-old G2, P1 who is currently 7 weeks gestation presents to the emergency department for evaluation of perineal bleeding which started today. Patient states she tried to wipe her self and accidentally scratched her perineum. Patient saw the blood on the toilet paper and decided to come to the emergency department for reevaluation. While in the waiting area patient has use the bathroom has not noticed any blood on the toilet paper. Patient reports she was recently discharged from this hospital for hypokalemia. At present denies any abdominal pain, vaginal bleeding, vaginal discharge, hematuria, dysuria. Patient is unsure of her last tetanus shot. No recent travel or sick contacts. PAST MEDICAL HISTORY: Denies past medical history SURGICAL HISTORY: Denies ALLERGIES: No known drug allergies REVIEW OF SYSTEMS General/Constitutional: Denies fever or chills. Denies weakness, weight change. HEENT: Denies change in vision. Denies ear pain or discharge. Denies sore throat. Cardiovascular: Denies chest pain or shortness of breath. Respiratory: Denies cough, wheezing, or hemoptysis. Gastrointestinal: Denies nausea, vomiting, diarrhea or constipation. Denies rectal bleeding. Genitourinary: Denies dysuria, frequency, or change in urination. Musculoskeletal: Denies joint or muscle swelling or pain. Denies neck or back pain. Skin and breasts: See HPI Neurologic: Denies headache, vertigo, loss of consciousness, or loss of sensation. Psychiatric: Denies depression or anxiety. Endocrine: Denies increased thirst. Denies abnormal weight change. Hematologic/Lymphatic: Denies anemia, easy bleeding, or history of blood clots. Allergic/Immunologic: Denies hives or skin allergy. Denies latex allergy. PHYSICAL EXAM General Appearance: Well-appearing, appropriately dressed. No apparent distress , no intoxication. Respiratory/Chest: Lungs CTAB. No shortness of breath, chest tenderness, respiratory distress, accessory muscle use. No crackles, rales, rhonchi, stridor , wheezing, dullness Cardiovascular: RRR. S1, S2. No JVD, murmur, bradycardia, tachycardia. Vascular Pulses: Dorsalis-Pedis (R): 2+, Dorsalis-Pedis (L): 2+ Gastrointestinal/Abdominal: Normal bowel sounds. Abdomen soft, non-distended. No tenderness or rebound tenderness. No organomegaly, pulsatile mass, guarding, hernia, hepatomegaly, splenomegaly. Lymphatic: No adenopathy, tenderness. Musculoskeletal/Extremities: Normal inspection. FROM of all extremities, normal capillary refill. Pelvis Stable. No CVA tenderness. No tenderness to extremities, pedal edema, swelling, erythema or deformity. Integumentary: Appropriate color, dry, warm. No cyanosis, erythema, jaundice or rash Past History - Past Medical History Allergies/Adverse Reactions: Allergies Allergy/AdvReac Type Severity Reaction Status Date / Time No Known Allergies Allergy Verified 08/31/19 14:32 Home Medications: Ambulatory Orders Mv-Mn/Iron/FA/Herbal/Digestive [ One Tablet] 1 each PO DAILY 02/15/15 Acetaminophen [Pain Relief] 650 mg PO Q8H PRN #30 tablet.er 08/19/19 Famotidine [Pepcid] 20 mg PO DAILY #30 tablet 08/19/19 Miconazole Nitrate [Miconazole 7] 100 mg VG HS #7 supp.vag 08/31/19 Anemia: No Asthma: No Cancer: No Cardiac Disorders: No CVA: No COPD: No CHF: No Dementia: No Diabetes: No GI Disorders: No Disorders: No HTN: No Hypercholesterolemia: No Liver Disease: No Seizures: No Thyroid Disease: No - Reproductive History (#): 2 Para: 1 Cervical CA: No Dysfunctional Uterine Bleeding: No Ectopic : No Endometrial CA: No Polycystic Ovaries: No Therapeutic (s) & number: No Tubal Ligation: No - Immunization History Td Vaccination: Yes TDAP Vaccination: No Immunization Up to Date: Yes - Psycho Social/Smoking Cessation Hx Smoking Status: No Smoking History: Never smoked Years of Tobacco Use: 0 Have you smoked in the past 12 months: No Number of Cigarettes Smoked Daily: 0 Cigars Per Day: 0 Hx Alcohol Use: No Drug/Substance Use Hx: No Substance Use Type: None Hx Substance Use Treatment: No *Physical Exam - Vital Signs Last Vital Signs Temp Pulse Resp BP Pulse Ox 98.1 F 65 16 121/53 L 100 08/31/19 14:33 08/31/19 14:33 08/31/19 14:33 08/31/19 14:33 08/31/19 14:33 - Physical Exam Comments:: 08/31/19 16:45 LUCIA Webb present as senior storage engineer Female Pelvic Exam: positive: cervical os closed, normal adnexa, discharge ( Caseous white discharge present in the vagina). negative: normal external exam (Abrasion present to right outer labia. No bleeding at present.), [facility] Medical Decision Making - Medical Decision Making 08/31/19 16:48 A/P: 29-year-old woman with abrasion present to right outer labia and yeast infection Boostrix While patient denies any symptoms at this time as her initial complaint was for presentation after scratching her vagina. I will treat with [id number] Monistat for 7 days. Patient has been instructed to follow-up with her SIGNAL APPRENTICE for repeat evaluation. Discharge home I discussed the physical exam findings, ancillary test results and final diagnoses with the patient. I answered all of the patient's questions. The patient was satisfied with the care received and felt comfortable with the discharge plan and treatment plan. The patient will call their primary care physician within 24 hours to arrange follow-up and will return to the Emergency Department with any new, persistent or worsening symptoms. Discharge - Discharge Information Problems reviewed: Yes Clinical Impression/Diagnosis: Candidiasis of vagina during Abrasion of labia Qualifiers: Encounter type: initial encounter Qualified Code(s): S30.814A - Abrasion of vagina and vulva, initial encounter Condition: Stable Disposition: HOME - Admission No - Additional Discharge Information Prescriptions: Miconazole Nitrate [Miconazole 7] 100 mg VG HS #7 supp.vag - Follow up/Referral Referrals: Alfred Clemons MD [Primary Care Provider] - - Patient Discharge Instructions Additional Instructions: Insert miconazole vaginally every night at bedtime for the next 7 days. Take Tylenol as needed for pain. Your tetanus has been updated today. This is good for the next 10 years. It is important that you follow-up with your SOLE FILLER for continued evaluation. Return to the emergency department any new or worsening symptoms. Thank you very much for choosing us to provide your emergent healthcare needs. - Post Discharge Activity
[2019-08-31] MEDS ORDERED: DIPHTH,PERTUSS(ACELL),TET 0.5 ML DISP.SYRIN IM ONE ×2 (16:53→16:57)
== END 2019-08-31 17:00 | disposition home or self-care (01) ==
LOC: JERFT 14:09
PROC: 3E0234Z Introduction of Serum, Toxoid and Vaccine into Muscle, Percutaneous Approach (ICD-10-PCS; principal; 2019-08-31)
DX: O26.891 Other specified pregnancy related conditions, first trimester (principal); O98.811 Other maternal infectious and parasitic diseases complicating pregnancy, first trimester; B37.89 Other sites of candidiasis; Z3A.01 Less than 8 weeks gestation of pregnancy; S30.814A Abrasion of vagina and vulva, initial encounter; X58.XXXA Exposure to other specified factors, initial encounter; Y93.89 Activity, other specified; Y92.031 Bathroom in apartment as the place of occurrence of the external cause; Y99.8 Other external cause status
CPT/HCPCS: 90471; 90715; 99281-25

== ENCOUNTER 2019-09-22 13:55 | Emergency (ER) | payer OTHER ==
[2019-09-22 14:14] VITALS: BP 116/65; PULSE 85; TEMP 98; BMI 20.7
--- NOTE | 2019-09-22 14:16 | PDOC ---
Rapid Medical Evaluation Time Seen by Provider: 09/22/19 14:12 Medical Evaluation: Allergies Allergy/AdvReac Type Severity Reaction Status Date / Time No Known Allergies Allergy Verified 09/22/19 14:10 09/22/19 14:12 I performed a brief in-person evaluation of this patient. Healthy 29-year-old LMP sometime in Jun or Jul, has had Doppler but no formal u/s for this presenting with abd pain, back pain, and clear discharge. No bleeding. Pertinent physical exam findings. Gravid uterus, no focal tenderness. I have ordered the following: Labs including CBC, BMP, bhcg, T&S UA/cx TV u/s confirm IUP, well-being Patient to proceed to ED for further evaluation. Discharge Disposition - Diagnosis Abdominal pain complicating - Referrals - Patient Instructions - Post Discharge Activity
[2019-09-22 14:40] LABS: BASO % 0.9 % (0-2.0); EOS % 0.5 % (0-4.5); HEMATOCRIT 36.7 % (32.4-45.2); HEMOGLOBIN 12.3 GM/dL (10.7-15.3); LYMPH % 33.7 % (8-40); MCH 29.6 pg (25.7-33.7); MCHC 33.6 g/dl (32.0-36.0); MEAN CELL VOLUME 87.9 fl (80-96); MEAN PLT VOLUME 8.7 fl (7.5-11.1); MONO % 7.3 % (3.8-10.2); NEUT % 57.6 % (42.8-82.8); PLATELET COUNT 247 K/MM3 (134-434); RBC 4.17 M/mm3 (3.60-5.2); RDW 13.6 % (11.6-15.6); WHITE BLOOD COUNT 6.7 K/mm3 (4.0-10.0)
[2019-09-22 14:42] LABS: URINE APPEARANCE CLOUDY; URINE BILIRUBIN NEGATIVE (NEGATIVE); URINE COLOR YELLOW; URINE GLUCOSE (UA) NEGATIVE (NEGATIVE); URINE KETONE 1+ (NEGATIVE); URINE LEUK ESTERASE NEGATIVE (NEGATIVE); URINE NITRITE NEGATIVE (NEGATIVE); URINE PROTEIN NEGATIVE (NEGATIVE)
[2019-09-22 15:10] LABS: ALBUMIN 3.8 g/dl (3.4-5.0); BILIRUBIN,TOTAL 0.4 mg/dL (0.2-1); BLOOD UREA NITROGEN 7.2 mg/dL (7-18); CALCIUM 9.3 mg/dL (8.5-10.1); CREATININE 0.5 mg/dL (0.55-1.3); POTASSIUM 3.9 mmol/L (3.5-5.1); TOT PROT 7.1 g/dl (6.4-8.2)
--- NOTE | 2019-09-22 15:23 | PDOC ---
History of Present Illness - General Chief Complaint: Pain, Acute Stated Complaint: LBP (3 MONTHS PG) Time Seen by Provider: 09/22/19 14:12 History Source: Patient - History of Present Illness Timing/Duration: reports: intermittent Past History - Past Medical History Allergies/Adverse Reactions: Allergies Allergy/AdvReac Type Severity Reaction Status Date / Time No Known Allergies Allergy Verified 09/22/19 14:10 Home Medications: Ambulatory Orders Mv-Mn/Iron/FA/Herbal/Digestive [ One Tablet] 1 each PO DAILY 02/15/15 Acetaminophen [Pain Relief] 650 mg PO Q8H PRN #30 tablet.er 08/19/19 Anemia: No Asthma: No Cancer: No Cardiac Disorders: No CVA: No COPD: No CHF: No Dementia: No Diabetes: No GI Disorders: No Disorders: No HTN: No Hypercholesterolemia: No Liver Disease: No Seizures: No Thyroid Disease: No - Reproductive History (#): 2 Para: 1 Cervical CA: No Dysfunctional Uterine Bleeding: No Ectopic : No Endometrial CA: No Polycystic Ovaries: No Therapeutic (s) & number: No Tubal Ligation: No - Immunization History Td Vaccination: Yes TDAP Vaccination: No Immunization Up to Date: Yes - Psycho Social/Smoking Cessation Hx Smoking Status: No Smoking History: Never smoked Years of Tobacco Use: 0 Have you smoked in the past 12 months: No Number of Cigarettes Smoked Daily: 0 Cigars Per Day: 0 Hx Alcohol Use: No Drug/Substance Use Hx: No Substance Use Type: None Hx Substance Use Treatment: No Abd/GI Specific PMHX - Complaint Specific PMHX GERD: No Review of Systems - Review of Systems Constitutional: No: Chills, Fever ABD/GI: Yes: Abdominal cramping. No: Nausea, Vomiting : No: Dysuria, Flank Pain Musculoskeletal: Yes: Back Pain *Physical Exam - Vital Signs Last Vital Signs Temp Pulse Resp BP Pulse Ox 98 F 85 18 116/65 98 09/22/19 14:10 09/22/19 14:10 09/22/19 14:10 09/22/19 14:10 09/22/19 14:10 - Physical Exam General Appearance: Yes: Appropriately Dressed. No: Apparent Distress HEENT: positive: Normal Voice Neck: positive: Supple Respiratory/Chest: negative: Respiratory Distress Gastrointestinal/Abdominal: positive: Soft. negative: Tender Musculoskeletal: negative: CVA Tenderness Integumentary: positive: Dry, Warm Neurologic: positive: Fully Oriented, Alert, Normal Mood/Affect ED Treatment Course - LABORATORY CBC & Chemistry Diagram: 09/22/19 14:10 09/22/19 14:10 - ADDITIONAL ORDERS Additional order review: Laboratory Results 09/22/19 14:10 Urine Color Yellow Urine Appearance Cloudy Urine pH 7.0 D Ur Specific [place] 1.029 Urine Protein Negative Urine Glucose (UA) Negative Urine Ketones 1+ H Urine Blood Negative Urine Nitrite Negative Urine Bilirubin Negative Urine Urobilinogen 1.0 Ur Leukocyte Esterase Negative 09/22/19 14:10 RBC 4.17 MCV 87.9 MCHC 33.6 RDW 13.6 MPV 8.7 D Neutrophils % 57.6 Lymphocytes % 33.7 Monocytes % 7.3 Eosinophils % 0.5 Basophils % 0.9 - RADIOLOGY Radiology Studies Ordered: Category Date Time Status OB LIMITED US [US] Stat Ultrasound 09/22/19 14:52 Ordered Medical Decision Making - Medical Decision Making 09/22/19 14:55 29-year-old female , ~ 12 weeks by dates with confirmed IUP on ultrasound , here with lower back and abdominal pain x several days on and off. Had 1 episodes of vomiting today. No vaginal bleed, dysuria, fever or chills. Has upcoming OB appointment see exam 1st trimester pain w/ confirmed IUP Stable and well chela and unremarkable exam UA neg for infxn US pending Anticipate discharge w/ OB f/u 09/22/19 17:10 Labs unremarkable. Ultrasound shows approximately 11-week IUP with heart heart rate. No significant pain at this time and patient currently tolerating p.o. in ED. Will DC to follow-up with OB this week Discharge - Discharge Information Problems reviewed: Yes Clinical Impression/Diagnosis: Abdominal pain complicating Condition: Improved Disposition: HOME - Follow up/Referral Referrals: Alfred Clemons MD [Primary Care Provider] - - Patient Discharge Instructions Patient Printed Discharge Instructions: Managing Symptoms of Additional Instructions: Your labs were normal today. Your ultrasound shows that you are approximately 11 weeks heart rate was documented Please follow-up with your OB this week Tylenol for pain as needed - Post Discharge Activity
== END 2019-09-22 17:53 | disposition home or self-care (01) ==
LOC: JER 13:55
DX: O26.891 Other specified pregnancy related conditions, first trimester (principal); R10.2 Pelvic and perineal pain; Z3A.11 11 weeks gestation of pregnancy
CPT/HCPCS: 36415; 76801-TC; 80053; 81003; 84702; 85025; 86850; 86900; 86901; 87086; 99284-25

== ENCOUNTER 2020-04-13 19:35 | Inpatient (IN) | payer OTHER ==
[2020-04-13] MEDS ORDERED: PROMETHAZINE HCL 25 MG/1 ML VIAL IVPUSH ONE (22:27)
[2020-04-13] MEDS ORDERED: BUTORPHANOL TARTRATE 1 MG/ML VIAL IVPB ONE (22:27)
[2020-04-13] MEDS ORDERED: ELECTROLYTE-148 SOLN 1,000 ML IV SCH (22:30)
--- NOTE | 2020-04-13 22:59 | HP ---
Past Medical History - Primary Care Physician PCP:: Celine Saucedo - Admission Chief Complaint: 29 yrs , 40.2 wks , onset LP since 7.00PM . admitted in early labor UC q3-4-5 min mod strong History of Present Illness: pnc at , [facility] PRENAATAL PANL: 09/18/19 o POS, HBSAG NEG, SICKLE NEG , VARICELLA IMMUNE, rUBELLA IMMUNE , MEASLES IMMUNE , LED NEG HIV NEG T pallidum AB Neg 08/21/19 PAP ;ASCUS , GC/CT NEG. HPV 16/18 NEG , HPV HR non 16/18 Pos 11/06/19 AFP neg 08/18/19 us 6.1 wks sliup, EDC assigned 04/11/20 h/o hospitalization for hyperemesis in 1st trimester , 01/23/20 ; 1hr gtt 104 , cmp wnl . results not seen . Quantiferon not seen 03/18/10 36 wks cultures gc/ct neg. gbs neg , hiv neg h/h 11.0/35.8 , plt 121 History Source: Patient, Medical Record Limitations to Obtaining History: No Limitations - Past Medical History CYTOTECHNOLOGIST: No: Alzheimer's, CVA, Dementia, Migraine, Multiple Sclerosis, Peripheral Neuropathy, Parkinson's, Seizure, Syncope, TIA, Vertigo, Other Cardiovascular: No: AFIB, Aneurysm, Aortic Insufficiency, Aortic Stenosis, CAD, CHF, Deep Vein Thrombosis, HTN, Hyperlipdemia, HI, Mitral Insufficiency, Mitral Stenosis, Murmur, Pulmonary Hypertension, Other Pulmonary: No: Asthma, Bronchitis, Cancer, COPD, O2 Dependent, Pneumonia, Previously Intubated, Pulmonary Embolus, Pulmonary Fibrosis, Sleep Apnea, Other Gastrointestinal: Yes: Other (epigastric pain, nausea, , declines h/o gastritis or peptic ulcer or gerd h/o hyperemesis in1st rimester hospitalized) Hepatobiliary: Yes: Other (no h/o gall stones) Renal/: Yes: UTI (rx po keflex) ...: 2 ...Para: 1 ( : 6" 40 wks , h/oepidural ) ...Term: 1 ...LMP: 07/13/19 ... Weeks Gestation by Dates: 39.2 ...EDC by Dates: 04/18/20 ...EDC by Jose David: 04/11/20 (40.2 wks by jose david ) Heme/Onc: Yes: Other (declines) Infectious Disease: Yes: Other (non 16/18 HR HPV pos) Psych: No: Addictions, Anxiety, Bipolar, Depression, Panic, Psychosis, Schizophrenia, Other Musculoskeletal: No: Bursitis, Chronic low back pain, Hemiparesis, Hemiplegia, Osteoarthritis, Paraplegia, Other Endocrine: No: [place]'s Disease, Dae's Disease, Diabetes Insipidus, Diabetes Mellitus, Hyperparathyroidism, Hyperthyroidism, Hypothyroidism, Osteopenia, SIADH, Other - Past Surgical History Past Surgical History: Yes: None Hx Myomectomy: No Hx Transabdominal Cerclage: No - Smoking History Smoking history: Never smoked Have you smoked in the past 12 months: No Aproximately how many cigarettes per day: 0 - Alcohol/Substance Use Hx Alcohol Use: No History of Substance Use: reports: None - Social History History of Recent Travel: No Home Medications - Allergies Allergies/Adverse Reactions: Allergies Allergy/AdvReac Type Severity Reaction Status Date / Time No Known Allergies Allergy Verified 04/13/20 23:03 - Home Medications Home Medications: Ambulatory Orders Mv-Mn/Iron/FA/Herbal/Digestive [ One Tablet] 1 each PO DAILY 02/15/15 Acetaminophen [Pain Relief] 650 mg PO Q8H PRN #30 tablet.er 08/19/19 Cephalexin Monohydrate [Keflex -] 500 mg PO BID #14 capsule 12/24/19 Famotidine [Pepcid] 20 mg PO BID 10 Days #20 tablet 12/24/19 Ondansetron [Zofran *Odt*] 4 mg GT BID 4 Days #8 tab.rapdis 12/24/19 Review of Systems - Review of Systems Constitutional: reports: Other (pain) Eyes: reports: No Symptoms HENT: reports: No Symptoms Neck: reports: No Symptoms Cardiovascular: reports: No Symptoms Respiratory: reports: No Symptoms Gastrointestinal: reports: Nausea Genitourinary: reports: No Symptoms Breasts: reports: No Symptoms Reported Musculoskeletal: reports: No Symptoms Integumentary: reports: No Symptoms Neurological: reports: No Symptoms Endocrine: reports: No Symptoms Hematology/Lymphatic: reports: No Symptoms Psychiatric: reports: No Symptoms Pain Intensity: 8 Physical Exam - Maternity Constitutional: Yes: Well Nourished, Severe Distress (pain scale 8/10) Eyes: Yes: WNL HENT: Yes: WNL Neck: Yes: WNL Cardiovascular: Yes: WNL Lungs: Clear to auscultation Breast(s): Yes: WNL - Abdominal Exam/OB Fundal Height: 38 Number of Fetuses: Single Presentation: Vertex Contractions: Yes Regularity: Regular (3-5 min) Intensity: Mod/Strong Monitor Mode: External Heart Rate (range): 150 Heart Rate Location: [facility] Category: I Accelerations: Uniform Decelerations: None - Vaginal Exam/OB Vaginal Bleeding: No Speculum Exam: No Dilatation (cm): 1-2 Effacement (%): 65 Amniotic Membrane Status: Intact Presentation: Vertex/Position Station: -3 - Physical Exam Musculoskeletal: Yes: WNL Extremities: Yes: WNL Edema: Yes Edema: LLE: Trace, RLE: Trace Integumentary: Yes: Tattoos Deep Tendon Reflex Grade: Normal +2 ...Motor Strength: WNL Psychiatric: Yes: WNL, Other (pt tense) Hemorrhage Risk Assessment - Risk Factors Risk Score: 0 Risk Level: Low Risk Problem List - Problems (1) Post term over 40 weeks Code(s): O48.0 - POST-TERM (2) Labor established Code(s): ZEM6458 - Assessment/Plan 29 yrs , 40.2 wks in early labor uc mod strong , pt in pain gbs neg Plan anticipate vag del
[2020-04-14 00:47] LABS: INR 0.87 (0.83-1.09); PROTHROMBIN TIME (PATIENT) 10.2 SEC (9.7-13.0)
[2020-04-14] MEDS ORDERED: OXYTOCIN 20 UNITS in 0.9% NS 20 UNIT/1,000 ML INFUS.BAG IV ONE ×2 (00:48→01:21)
[2020-04-14 00:49] LABS: ACTIVATED PTT 28.7 SECONDS (25.2-36.5)
[2020-04-14 00:50] LABS: BLOOD UREA NITROGEN 7.7 mg/dL (7-18); CALCIUM 9.1 mg/dL (8.5-10.1); CREATININE 0.6 mg/dL (0.55-1.3); POTASSIUM 4.1 mmol/L (3.5-5.1)
[2020-04-14 00:57] LABS: BASO % 0.4 % (0-2.0); EOS % 0.7 % (0-4.5); HEMATOCRIT 39.6 % (32.4-45.2); LYMPH % 31.5 % (8-40); MCH 29.8 pg (25.7-33.7); MCHC 32.7 g/dl (32.0-36.0); MEAN CELL VOLUME 91.1 fl (80-96); MEAN PLT VOLUME 12.6 fl (7.5-11.1); MONO % 10.8 % (3.8-10.2); NEUT % 56.6 % (42.8-82.8); RBC 4.35 M/mm3 (3.60-5.2); RDW 14.9 % (11.6-15.6); WHITE BLOOD COUNT 7.5 K/mm3 (4.0-10.0)
[2020-04-14] MEDS ORDERED: LIDOCAINE HCL 1% PRESERVATIVE FREE - 30ML VIAL ONE (00:58)
[2020-04-14] MEDS ORDERED: IBUPROFEN 600 MG TABLET (FP) PO ONE (01:21)
[2020-04-14] MEDS ORDERED: ACETAMINOPHEN 325 MG TABLET (FP) ONE (01:21)
[2020-04-14] MEDS ORDERED: METHYLERGONOVINE MALEATE 0.2 MG/1 ML AMP IM PRN (01:42)
[2020-04-14] MEDS ORDERED: oxyCODONE HCL 5 MG TABLET PO PRN (01:42)
[2020-04-14] MEDS ORDERED: BENZOCAINE 28 GM HEMORRHOIDAL OINTMENT TP PRN (01:42)
[2020-04-14] MEDS ORDERED: WITCH HAZEL 50% (TUCKS) 40 PAD/JAR PAD TP PRN (01:42)
[2020-04-14] MEDS ORDERED: BISACODYL 10 MG SUPP.RECT RC PRN (01:42)
[2020-04-14] MEDS ORDERED: BENZOCAINE 20% 57 GM BOTTLE TP PRN (01:42)
[2020-04-14] MEDS: ACETAMINOPHEN 325 MG TABLET (FP) PO PRN ×3 (01:45→17:35)
[2020-04-14] MEDS ORDERED: OXYTOCIN 20 UNITS in 0.9% NS 20 UNIT/1,000 ML INFUS.BAG IV SCH (01:45)
[2020-04-14] MEDS: IBUPROFEN 600 MG TABLET (FP) PO PRN ×3 (01:45→17:34)
--- NOTE | 2020-04-14 01:56 | PN ---
Delivery - Delivery Vaginal Delivery: No Problems, Spontaneous (baby delievered vx, lne position , shoulder delievered without difficulty , immediate oral & nasal suction was done at perineum ..cord blood collected, trivascular cord .placenta delievered completely with membranes ..vagina inclusion cyst 0.5cm at perineum removed under L.A .vagina sutured with chr catgut #2/0 .) Type of Anesthesia: Local Episiotomy/Laceration: Vaginal Extension/lac, 1st degree EBL (cc): 300 Delivery, Single - Stages of Labor Date 1st Stage Initiatied: 04/13/20 Time 1st Stage Initiated: 19:00 Date 2nd Stage Initiated: 04/14/20 Time 2nd Stage Initiated: 00:40 Date of Delivery: 04/14/20 Time of Delivery: 00:50 Date Placenta Delivered: 04/14/20 Time Placenta Delivered: 00:55 Placenta: Yes: Spontaneous, Uterine Exploration - Condition of Infant Tourism Radio Presenter/Ocular Pathologist Present: No Weight: 7 lb Position: Left, OA Total Hours ROM (Hrs/Mins): 15 min - 1 Minute Total Score: 9 5 Minutes Total Score: 9 Remarks - Remarks Remarks: 29 yrs , 40.2 weeks in labor pnc at [address] [place] [address] . GBs neg intrapartum course uneventful
[2020-04-14 03:28] VITALS: BMI 28.3
[2020-04-14 06:42] LABS: PLATELET COUNT 116 K/MM3 (134-434)
[2020-04-14 06:43] LABS: PLATELET ESTIMATE SLT DECREASE
[2020-04-14] MEDS ORDERED: AMPICILLIN SODIUM 2 GM VIAL ONE (06:43)
[2020-04-14] MEDS: FERROUS SO4 325 MG TABLET (FP) PO SCH ×2 (08:25→17:35)
[2020-04-14] MEDS: PRENATAL VITAMINS W/ FOLIC ACID TABLET (FP) PO SCH (10:06)
[2020-04-14 11:23] LABS: ANISOCYTOSIS 0; MACROCYTOSIS 0
[2020-04-15 08:33] LABS: BASO % 0.5 % (0-2.0); EOS % 1.9 % (0-4.5); HEMATOCRIT 34.4 % (32.4-45.2); HEMOGLOBIN 11.3 GM/dL (10.7-15.3); LYMPH % 40.8 % (8-40); MCH 29.7 pg (25.7-33.7); MEAN CELL VOLUME 90.1 fl (80-96); MEAN PLT VOLUME 11.5 fl (7.5-11.1); MONO % 9.3 % (3.8-10.2); NEUT % 47.5 % (42.8-82.8); PLATELET COUNT 112 K/MM3 (134-434); RBC 3.82 M/mm3 (3.60-5.2); RDW 15.3 % (11.6-15.6); WHITE BLOOD COUNT 9.2 K/mm3 (4.0-10.0)
[2020-04-15] MEDS: FERROUS SO4 325 MG TABLET (FP) PO SCH (08:57)
[2020-04-15] MEDS: PRENATAL VITAMINS W/ FOLIC ACID TABLET (FP) PO SCH (09:35)
[2020-04-15 13:10] VITALS: BP 102/58; PULSE 81; TEMP 98.8
--- NOTE | 2020-04-15 13:40 | DS ---
Physical Exam-BARREL [employer]TER Vital Signs: Vital Signs Temperature 98.8 F 04/15/20 10:00 Pulse Rate 81 04/15/20 10:00 Respiratory Rate 16 04/15/20 10:00 Blood Pressure 102/58 L 04/15/20 10:00 O2 Sat by Pulse Oximetry (%) 100 04/14/20 22:00 Constitutional: Yes: Well Nourished, Other (c/o mild cramps) Eyes: Yes: WNL HENT: Yes: WNL Neck: Yes: WNL Cardiovascular: Yes: WNL Respiratory: Yes: WNL Gastrointestinal: Yes: WNL ...Rectal Exam: Yes: WNL Renal/: Yes: WNL, Other (voiding without well) ....Post : Yes: Uterus firm, Moderate lochia rubra (perineum healing well. no c/o soreness) Breast(s): Yes: WNL (not engorged . breast soft) Musculoskeletal: Yes: WNL Extremities: Yes: WNL. No: Calf Tenderness Edema: Yes Edema: LLE: Trace, RLE: Trace Integumentary: Yes: Tattoos Neurological: Yes: WNL, Alert, Oriented ...Motor Strength: WNL Psychiatric: Yes: WNL, Alert, Oriented Labs: CBC, BMP 04/15/20 08:05 04/14/20 00:00 Delivery - Delivery Vaginal Delivery: No Problems, Spontaneous (baby delievered vx, len position , shoulder delievered without difficulty , immediate oral & nasal suction was done at perineum ..cord blood collected, trivascular cord .placenta delievered completely with membranes ..vagina inclusion cyst 0.5cm at perineum removed under L.A .vagina sutured with chr catgut #2/0 .) Type of Anesthesia: Local Episiotomy/Laceration: Vaginal Extension/lac, 1st degree EBL (cc): 300 Delivery, Single - Stages of Labor Date 1st Stage Initiatied: 04/13/20 Time 1st Stage Initiated: 19:00 Date 2nd Stage Initiated: 04/14/20 Time 2nd Stage Initiated: 00:40 Date of Delivery: 04/14/20 Time of Delivery: 00:50 Time Placenta Delivered: 00:55 Placenta: Yes: Spontaneous, Uterine Exploration - Condition of Infant Human Service Specialist/Maintenance And Custodian Supervisor Present: No Infant Gender: Male Weight: 7 lb Position: Left, OA Total Hours ROM (Hrs/Mins): 15 min - 1 Minute Total Score: 9 5 Minutes Total Score: 9 - [place] Feeding Plan Initial Plan: Elected not to breastfeed exclusively throughout hospitalization Remarks - Remarks Remarks: 29 yrs , 40.2 weeks in labor pnc at [address] [place] [address] . GBs neg intrapartum course uneventful . pp course uneventful Discharge Summary Problems reviewed: Yes Reason For Visit: ADMIT LABOR Current Active Problems Labor established (Acute) Normal spontaneous vaginal delivery (Acute) Post term over 40 weeks (Acute) Condition: Stable - Instructions Diet, Activity, Other Instructions: Post Instructions DIET: Continue good diet high in protein, calcium, and iron rich foods. Drink at least eight (8) glasses of water daily in addition to other fluids. ct Regular diet MEDICATIONS: Continue vitamins and iron as previously directed. Motrin and Tylenol may be taken for minor discomfort. ACTIVITY: Mild to moderate exercise may be started in two (2) weeks. Take frequent rest periods. Resume normal activity after six (6) week check up. WOUND CARE OF OPERATIVE SITE: Continue use of perineal bottle until vaginal discharge stops. Keep area clean. Shower daily. Keep abdominal wound dry. Report any drainage or redness to physician. Tub baths, tampons and douches are not permitted for [address] Breast feeding & or Bottle feeding BREAST CARE: (For those that are not ): If engorgement occurs: Wear tight fitting bra. Take Tylenol or Motrin for pain. Apply cold packs (ice in bags to each breast ) FAMILY PLANNING: There are many control alternatives to pursue and they should be discussed at your first office visit. You may resume sexual activity after your six (6) week check up. (Remember, breast feeding is not a contraceptive) NEXT PHYSICIAN APPOINTMENT: Be certain to call for a three (3 ) week appointment, unless otherwise directed. . Call Clinic or got to Emergency Dept if you have any of the following: Heavy vaginal bleeding Painful urination Leg pain Unusual odor noted to vaginal bleeding High fever Red streaking noted on breast Referrals: Celine Saucedo MD [Family Provider] - Disposition: HOME - Home Medications Comprehensive Discharge Medication List: Ambulatory Orders Mv-Mn/Iron/FA/Herbal/Digestive [ One Tablet] 1 each PO DAILY 02/15/15 Acetaminophen [Pain Relief] 650 mg PO Q8H PRN #30 tablet.er 08/19/19 Famotidine [Pepcid] 20 mg PO BID 10 Days #20 tablet 12/24/19 Acetaminophen [Tylenol .Regular Strength -] 650 mg PO Q3H PRN tablet 04/15/20 Ferrous Sulfate [Feosol] 325 mg PO DAILY #30 tab 04/15/20 Ibuprofen [Motrin -] 600 mg PO Q4H PRN #30 tablet 04/15/20 Miscellaneous Medical Supply [Breast Pump, Electronic] 1 each NR ASDIR #1 unit 04/15/20 Vitamins (Sjr) - 1 tab PO DAILY #60 tablet 04/15/20
[2020-04-15] MEDS ORDERED: SENNOSIDES/DOCUSATE COMBO (SENNA PLUS) TABLET (UD) PO PRN (22:00)
== END 2020-04-15 16:10 | disposition home or self-care (01) | DRG 560 ==
LOC: JDEL 19:35 → JLDR 22:00 → J3W 04-14 04:15
PROVIDERS: ADMIT Obstetrics & Gynecology; ATTEND Obstetrics & Gynecology
PROC: 10E0XZZ Delivery of Products of Conception, External Approach (ICD-10-PCS; principal; 2020-04-14)
PROC: 0HQ9XZZ Repair Perineum Skin, External Approach (ICD-10-PCS; 2020-04-14)
DX: O48.0 Post-term pregnancy (principal); O70.0 First degree perineal laceration during delivery; Z3A.40 40 weeks gestation of pregnancy; Z37.0 Single live birth
CPT/HCPCS: 36415; 59409; 80048; 85025; 85610; 85730; 86780; 86850; 86900; 86901; U0003

== ENCOUNTER 2020-12-21 09:38 | Emergency (ER) | payer OTHER ==
[2020-12-21 09:43] VITALS: BP 117/79; PULSE 73; BMI 26.6
[2020-12-21] MEDS ORDERED: ACETAMINOPHEN 325 MG TABLET (FP) PO ONE (10:23)
[2020-12-21 10:29] LABS: BASO % 0.5 % (0-2.0); EOS % 2.7 % (0-4.5); HEMATOCRIT 41.7 % (32.4-45.2); HEMOGLOBIN 13.8 GM/dL (10.7-15.3); MCH 29.6 pg (25.7-33.7); MCHC 33.1 g/dl (32.0-36.0); MEAN CELL VOLUME 89.2 fl (80-96); MEAN PLT VOLUME 8.9 fl (7.5-11.1); MONO % 7.1 % (3.8-10.2); NEUT % 71.7 % (42.8-82.8); PLATELET COUNT 231 K/MM3 (134-434); RBC 4.68 M/mm3 (3.60-5.2); RDW 13.7 % (11.6-15.6); WHITE BLOOD COUNT 6.4 K/mm3 (4.0-10.0)
[2020-12-21] MEDS ORDERED: ACETAMINOPHEN 325 MG TABLET (FP) ONE (10:35)
[2020-12-21 10:55] LABS: CHLORIDE 108 mmol/L (98-107); SODIUM 139 mmol/L (136-145)
[2020-12-21 10:57] LABS: ANION GAP 6 MMOL/L (8-16); BLOOD UREA NITROGEN 8.2 mg/dL (7-18); CALCIUM 8.6 mg/dL (8.5-10.1); CO2 26 mmol/L (21-32); GLUCOSE,RANDOM 72 mg/dL (74-106)
[2020-12-21 10:59] LABS: ALBUMIN 4.2 g/dl (3.4-5.0)
[2020-12-21 11:00] LABS: SGPT/ALT 10 U/L (13-61)
[2020-12-21 11:02] LABS: SGOT/AST 9 U/L (15-37)
[2020-12-21 11:03] LABS: BILIRUBIN,TOTAL 0.9 mg/dL (0.2-1); TOT PROT 7.5 g/dl (6.4-8.2)
[2020-12-21 11:04] LABS: ALK PHOS 87 U/L (45-117)
[2020-12-21 11:10] LABS: CREATININE 0.7 mg/dL (0.55-1.3)
== END 2020-12-21 11:36 | disposition home or self-care (01) ==
LOC: JER 09:38
DX: M94.0 Chondrocostal junction syndrome [Tietze] (principal); J06.9 Acute upper respiratory infection, unspecified; R51.9 Headache, unspecified; Z11.52 Encounter for screening for COVID-19
CPT/HCPCS: 36415; 71046-TC-FY; 80053; 82550; 84484; 84703; 85025; 93005; 93010; 99285-25; C9803; U0003; U0005

== ENCOUNTER 2021-05-26 16:47 | Emergency (ER) | payer OTHER ==
[2021-05-26 17:08] VITALS: BP 126/80; PULSE 88; TEMP 99.2; BMI 22.6
[2021-05-26] MEDS ORDERED: IBUPROFEN 600 MG TABLET (FP) PO ONE ×2 (17:46→17:50)
[2021-05-26] MEDS ORDERED: ACETAMINOPHEN/CAFFEINE/BUTALBITAL 1 TAB PO ONE (17:46)
== END 2021-05-26 21:00 | disposition home or self-care (01) ==
LOC: JER 16:47
DX: Z11.52 Encounter for screening for COVID-19 (principal)
CPT/HCPCS: 99283-25; C9803; U0003; U0005

== ENCOUNTER 2022-03-31 11:13 | Emergency (ER) | payer OTHER ==
[2022-03-31 11:32] VITALS: BP 127/71; PULSE 63; RESP 16; TEMP 97.6; BMI 29.0
[2022-03-31] MEDS ORDERED: ONDANSETRON 4 MG/2 ML VIAL IVPUSH ONE ×2 (12:33→17:29)
[2022-03-31] MEDS ORDERED: ACETAMINOPHEN 1000 MG/100 ML BAG IVPB ONE (12:33)
[2022-03-31] MEDS ORDERED: SODIUM CHLORIDE 0.9% 500 ML INFUS.BAG IV ONE (12:33)
[2022-03-31] MEDS ORDERED: ACETAMINOPHEN INJECTION 100 ML IVPB ONE (14:15)
[2022-03-31 14:59] LABS: BASO % 0.3 % (0-2.0); HEMATOCRIT 40.5 % (32.4-45.2); HEMOGLOBIN 13.5 GM/dL (10.7-15.3); LYMPH % 6.6 % (8-40); MCHC 33.2 g/dl (32.0-36.0); MEAN CELL VOLUME 87.3 fl (80-96); MEAN PLT VOLUME 9.6 fl (7.5-11.1); MONO % 2.7 % (3.8-10.2); NEUT % 90.4 % (42.8-82.8); PLATELET COUNT 203 10^3/uL (134-434); RBC 4.65 M/mm3 (3.60-5.2); RDW 13.4 % (11.6-15.6); WHITE BLOOD COUNT 8.3 K/mm3 (4.0-10.0)
[2022-03-31 15:19] LABS: ALBUMIN 4.1 g/dl (3.4-5.0); BLOOD UREA NITROGEN 7.9 mg/dL (7-18)
[2022-03-31 15:22] LABS: CREATININE 0.8 mg/dL (0.55-1.3)
[2022-03-31 15:23] LABS: BILIRUBIN,TOTAL 0.9 mg/dL (0.2-1)
[2022-03-31 15:24] LABS: TOT PROT 7.5 g/dl (6.4-8.2)
[2022-03-31 16:42] LABS: PH,URINE 8.5 (5.0-8.0); URINE APPEARANCE CLEAR; URINE BILIRUBIN NEGATIVE (NEGATIVE); URINE COLOR YELLOW; URINE GLUCOSE (UA) NEGATIVE (NEGATIVE); URINE KETONE 2+ (NEGATIVE); URINE LEUK ESTERASE NEGATIVE (NEGATIVE); URINE NITRITE NEGATIVE (NEGATIVE); URINE PROTEIN TRACE (NEGATIVE); URINE UROBILINOGEN 0.2 mg/dL (0.2-1.0)
[2022-03-31] MEDS ORDERED: KETOROLAC TROMETHAMINE 30 MG/1 ML VIAL IVPUSH ONE (17:28)
[2022-03-31] MEDS ORDERED: KETOROLAC TROMETHAMINE 15 MG/ML VIAL ONE (17:54)
[2022-03-31] MEDS ORDERED: ONDANSETRON 4 MG/2 ML VIAL ONE (17:54)
[2022-03-31] MEDS ORDERED: ACETAMINOPHEN 500 MG TABLET (FP) PO ONE (22:11)
[2022-03-31] MEDS ORDERED: ACETAMINOPHEN 500 MG TABLET (FP) ONE (22:12)
== END 2022-03-31 22:16 | disposition home or self-care (01) ==
LOC: JER 11:13
PROC: 3E033GC Introduction of Other Therapeutic Substance into Peripheral Vein, Percutaneous Approach (ICD-10-PCS; principal; 2022-03-31)
DX: A08.4 Viral intestinal infection, unspecified (principal)
CPT/HCPCS: 36415; 74177-TC; 80053; 81003; 83690; 84703; 85025; 87086; 87186; 99285-25; Q9967

== ENCOUNTER 2023-05-09 16:01 | Emergency (ER) | payer SELFPAY ==
[2023-05-09 16:09] VITALS: BP 109/61; PULSE 58; RESP 18; TEMP 98.2; BMI 24.2
[2023-05-09] MEDS ORDERED: SODIUM CHLORIDE 0.9% 500 ML INFUS.BAG IV ONE (17:36)
[2023-05-09] MEDS ORDERED: ACETAMINOPHEN 1000 MG/100 ML BAG IVPB ONE (17:36)
[2023-05-09] MEDS ORDERED: KETOROLAC TROMETHAMINE 30 MG/1 ML VIAL IVPUSH ONE (17:36)
[2023-05-09] MEDS ORDERED: METOCLOPRAMIDE HCL INJECTION 10 MG/2 ML VIAL IVPUSH ONE (17:37)
[2023-05-09] MEDS ORDERED: ACETAMINOPHEN INJECTION 100 ML IVPB ONE (17:49)
[2023-05-09] MEDS ORDERED: KETOROLAC TROMETHAMINE 30 MG/1 ML VIAL ONE (17:50)
[2023-05-09] MEDS ORDERED: METOCLOPRAMIDE HCL INJECTION 10 MG/2 ML VIAL ONE (17:50)
[2023-05-09 18:15] LABS: BASO % 0.7 % (0-2.0); HEMATOCRIT 39.2 % (32.4-45.2); HEMOGLOBIN 13.3 GM/dL (10.7-15.3); LYMPH % 43.7 % (8-40); MCH 29.3 pg (25.7-33.7); MONO % 7.6 % (3.8-10.2); RBC 4.56 M/mm3 (3.60-5.2); RDW 13.9 % (11.6-15.6); WHITE BLOOD COUNT 6.3 K/mm3 (4.0-10.0)
[2023-05-09 18:41] LABS: MEAN PLT VOLUME 9.2 fl (7.5-11.1); PLATELET COUNT 233 10^3/uL (134-434)
[2023-05-09 19:08] LABS: BLOOD UREA NITROGEN 7.1 mg/dL (7-18); CALCIUM 8.7 mg/dL (8.5-10.1)
[2023-05-09 19:09] LABS: MAGNESIUM 2.2 mg/dL (1.8-2.4)
[2023-05-09 19:11] LABS: CREATININE 0.7 mg/dL (0.55-1.3)
[2023-05-09 19:12] LABS: BILIRUBIN,TOTAL 0.6 mg/dL (0.2-1); TOT PROT 7.3 g/dl (6.4-8.2)
== END 2023-05-09 19:30 | disposition home or self-care (01) ==
LOC: JER 16:01
PROC: 3E033NZ Introduction of Analgesics, Hypnotics, Sedatives into Peripheral Vein, Percutaneous Approach (ICD-10-PCS; principal; 2023-05-09)
PROC: 3E033GC Introduction of Other Therapeutic Substance into Peripheral Vein, Percutaneous Approach (ICD-10-PCS; 2023-05-09)
PROC: 3E033GC Introduction of Other Therapeutic Substance into Peripheral Vein, Percutaneous Approach (ICD-10-PCS; 2023-05-09)
DX: G43.501 Persistent migraine aura without cerebral infarction, not intractable, with status migrainosus (principal)
CPT/HCPCS: 36415; 70450-TC; 80053; 83735; 85025; 99284-25

== ENCOUNTER 2024-09-21 16:37 | Emergency (ER) | payer SELFPAY ==
[2024-09-21 17:02] VITALS: TEMP 98.3; BMI 22.6
[2024-09-21] MEDS ORDERED: ONDANSETRON 4 MG/2 ML VIAL ONE (17:58)
[2024-09-21] MEDS ORDERED: ACETAMINOPHEN INJECTION 100 ML ONE (17:58)
[2024-09-21 18:04] LABS: BASO % 0.4 % (0-2.0); HEMATOCRIT 38.1 % (32.4-45.2); HEMOGLOBIN 12.6 GM/dL (10.7-15.3); LYMPH % 8.3 % (8-40); MCH 29.2 pg (25.7-33.7); MCHC 33.2 g/dl (32.0-36.0); MEAN CELL VOLUME 87.9 fl (80-96); MONO % 2.6 % (3.8-10.2); NEUT % 88.7 % (42.8-82.8); PLATELET COUNT 202 10^3/uL (134-434); RBC 4.33 M/mm3 (3.60-5.2); RDW 13.8 % (11.6-15.6); WHITE BLOOD COUNT 9.6 K/mm3 (4.0-10.0)
[2024-09-21] MEDS: ONDANSETRON 4 MG/2 ML VIAL IVPUSH ONE (18:30)
[2024-09-21] MEDS: SODIUM CHLORIDE 1,000 ML IV STA (18:30)
[2024-09-21] MEDS: ACETAMINOPHEN 1000 MG/100 ML BAG IVPB ONE (18:30)
[2024-09-21] MEDS ORDERED: FAMOTIDINE 20 MG/50 ML IVPB 20 MG/50 ML MG IVPB ONE (18:52)
[2024-09-21 18:56] LABS: POTASSIUM 3.8 mmol/L (3.5-5.1)
[2024-09-21 18:58] LABS: CALCIUM 9.3 mg/dL (8.5-10.1)
[2024-09-21 18:59] LABS: ALBUMIN 4.4 g/dl (3.4-5.0)
[2024-09-21] MEDS: FAMOTIDINE 20 MG/50 ML IVPB 20 MG/50 ML MG IVPB ONE (18:59)
[2024-09-21 19:02] LABS: CREATININE 0.8 mg/dL (0.55-1.3)
[2024-09-21 19:03] LABS: BILIRUBIN,TOTAL 0.6 mg/dL (0.2-1); TOT PROT 7.7 g/dl (6.4-8.2)
[2024-09-21 19:28] VITALS: BP 110/70; PULSE 73; RESP 18
== END 2024-09-21 19:28 | disposition home or self-care (01) ==
LOC: JERFT 16:37
PROC: 3E033GC Introduction of Other Therapeutic Substance into Peripheral Vein, Percutaneous Approach (ICD-10-PCS; principal; 2024-09-21)
PROC: 3E033NZ Introduction of Analgesics, Hypnotics, Sedatives into Peripheral Vein, Percutaneous Approach (ICD-10-PCS; 2024-09-21)
PROC: 3E033GC Introduction of Other Therapeutic Substance into Peripheral Vein, Percutaneous Approach (ICD-10-PCS; 2024-09-21)
DX: K52.9 Noninfective gastroenteritis and colitis, unspecified (principal); R11.2 Nausea with vomiting, unspecified; R10.13 Epigastric pain; Z20.822 Contact with and (suspected) exposure to COVID-19
CPT/HCPCS: 0241U-QW; 36415; 80053; 84703; 85025; 99284-25; J0131